=== PATIENT | male | born 1985 | race American Indian/Alaskan Native ===

== ENCOUNTER 2017-05-29 02:27 | Emergency (ER) | payer SELFPAY ==
[2017-05-29 03:35] VITALS: BP 166/117
== END 2017-05-29 02:50 | disposition left against medical advice (07) ==
LOC: ED 02:27
DX: Z53.21 Procedure and treatment not carried out due to patient leaving prior to being seen by health care provider (principal)

== ENCOUNTER 2019-02-26 17:46 | Emergency (ER) | payer MEDICAID ==
[2019-02-26] MEDS ORDERED: ASPIRIN PO ONE (17:54)
--- NOTE | 2019-02-26 17:55 | Event Note ---
ED Screening Note Date of service: 02/26/19 Time: 17:51 ED Screening Note: This is a 34 y.o. M. that presents to the ER with dyspnea, SOB, and chest pain for 3 hours. PMH HTN Currently not on medication. This initial assessment/diagnostic orders/clinical plan/treatment(s) is/are subject to change based on patients health status, clinical progression and re- assessment by fellow clinical providers in the ED. Further treatment and workup at subsequent clinical providers discretion. Patient/guardian urged not to elope from the ED as their condition may be serious if not clinically assessed and managed. Initial orders include: Labs, EKG, & CXR
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
[2019-02-26] MEDS ORDERED: TYLENOL PO ONE (18:38)
[2019-02-26] MEDS ORDERED: PROVENTIL IH ONE (18:38)
[2019-02-26] MEDS ORDERED: FLONASE NS ONE (19:00)
[2019-02-26 19:08] LABS: BUN/Creatinine Ratio 12; Blood Urea Nitrogen 12 mg/dL (9-20); Hemolysis Index 23
[2019-02-26 21:30] VITALS: BP 145/87
== END 2019-02-26 21:28 | disposition home or self-care (01) ==
LOC: ED 17:46
DX: R07.89 Other chest pain (principal); R06.02 Shortness of breath; H57.89 Other specified disorders of eye and adnexa; I10 Essential (primary) hypertension; F17.200 Nicotine dependence, unspecified, uncomplicated; F12.10 Cannabis abuse, uncomplicated
CPT/HCPCS: 36415; 71045; 80048; 80320; 82550; 83735; 93005; 93010; 94640; 94644; G0480

== ENCOUNTER 2019-04-13 07:36 | Emergency (ER) | payer MEDICAID ==
[2019-04-13 07:42] VITALS: BP 139/97
[2019-04-13] MEDS ORDERED: IPRATROPIUM/ALBUTEROL SULFATE 3 ML AMPUL.NEB IH ONE (08:50)
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
--- NOTE | 2019-04-13 09:10 | XRay Report ---
CHEST 2 VIEWS INDICATION: cough. COMPARISON: 02/26/2019 FINDINGS: Support devices: None. Heart: Within normal limits. Lungs/pleura: Streaky right basilar airspace disease with clear left lung. No pneumothorax. Additional findings: None. IMPRESSION: 1. Streaky right basilar airspace disease could be seen with evolving bronchopneumonia. Signer Name: Toni Mojica MD Signed: 04/13/2019 9:05 AM Workstation Name: [id number]
[2019-04-13] MEDS ORDERED: LIDOCAINE-MPF (1%) 10 MG/1 ML VIAL 5 ML INFILTRATI ONE (09:28)
== END 2019-04-13 10:30 | disposition home or self-care (01) ==
LOC: ED 07:36
DX: J18.9 Pneumonia, unspecified organism (principal); I10 Essential (primary) hypertension; F17.200 Nicotine dependence, unspecified, uncomplicated
CPT/HCPCS: 71046; 96372; 99283; J0696

== ENCOUNTER 2019-05-05 07:28 | Emergency (ER) | payer MEDICAID ==
[2019-05-05 08:00] LABS: Basophils # (Auto) 0.1 K/mm3 (0.0-0.1); Basophils % (Auto) 1.8 % (0.0-1.8); Eosinophils # (Auto) 0.1 K/mm3 (0.0-0.4); Eosinophils % (Auto) 1.4 % (0.0-4.3); Hematocrit 45.4 % (35.5-45.6); Hemoglobin 14.8 gm/dl (11.8-15.2); Lymphocytes # (Auto) 2.6 K/mm3 (1.2-5.4); Lymphocytes % (Auto) 46.4 % (13.4-35.0); Mean Corpuscular HGB Conc 33 % (32-34); Mean Corpuscular Volume 88 fl (84-94); Monocytes # (Auto) 0.3 K/mm3 (0.0-0.8); Monocytes % (Auto) 5.7 % (0.0-7.3); Platelet Count 248 K/mm3 (140-440); Red Blood Count 5.15 M/mm3 (3.65-5.03); Red Cell Distribution Width 14.8 % (13.2-15.2)
[2019-05-05 08:01] LABS: Bacteria,Urine 1+ /HPF (Negative); Bilirubin,Urine NEG (Negative); Blood,Urine SM (Negative); Color,Urine Amber (Yellow); Mucus,Urine 1+ /HPF
[2019-05-05 08:17] LABS: Alanine Aminotransferase 108 units/L (7-56); Albumin 3.7 g/dL (3.9-5); BUN/Creatinine Ratio 12; Blood Urea Nitrogen 15 mg/dL (9-20); Calcium 8.9 mg/dL (8.4-10.2); Hemolysis Index 27
--- NOTE | 2019-05-05 10:14 | XRay Report ---
CHEST 2 VIEWS INDICATION / CLINICAL INFORMATION: hemoptysis. COMPARISON: 04/13/2019 FINDINGS: SUPPORT DEVICES: None. HEART / MEDIASTINUM: No significant abnormality. LUNGS / PLEURA: There is mild parenchymal opacity in the right lung base similar to the prior study. The remainder the lungs are clear. No pneumothorax is seen. Pleura is unremarkable ADDITIONAL FINDINGS: No significant additional findings. IMPRESSION: 1. There is persistent mild parenchymal opacity in the right lower chest . No significant change Signer Name: Isak Gonzalez MD Signed: 05/05/2019 10:10 AM Workstation Name: [id number]
[2019-05-05] MEDS ORDERED: SODIUM CHLORIDE 0.9% 1000 ML 1,000 ML IV ONE (11:06)
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
[2019-05-05] MEDS ORDERED: cefTRIAXone/NS 1 GM/50 ML 1 GM/50 ML BAG IV ONE (11:32)
--- NOTE | 2019-05-05 11:36 | XRay Report ---
ABDOMEN 2 VIEW(S) INDICATION / CLINICAL INFORMATION: Abdominal plain, vomiting blood.. COMPARISON: None available. FINDINGS: TUBES / LINES: None. BOWEL GAS PATTERN: No gas-distended loops of intestines. Moderate colonic fecal load. FREE AIR / EXTRALUMINAL GAS: None seen. ADDITIONAL FINDINGS: No radiopaque calculi overlying the kidneys or expected course of the ureters. IMPRESSION: No evidence of acute intra-abdominal process. Nonobstructive bowel gas pattern. Signer Name: Henrik Moy MD Signed: 05/05/2019 11:32 AM Workstation Name: [id number]
[2019-05-05 12:15] LABS: INR 1.18 (0.87-1.13); Partial Thromboplastin Time 29.2 Sec. (24.2-36.6)
--- NOTE | 2019-05-05 14:04 | Ultrasound Report ---
ULTRASOUND ABDOMEN, LIMITED (RIGHT UPPER QUADRANT) INDICATION: abd pain, elevated LFTs. COMPARISON: None available. FINDINGS: Pancreas: Visualized portion shows no significant abnormality. Liver: Normal. Gallbladder: Gallbladder wall is thickened measuring 7 mm. No gallstones are seen. Bile ducts: Normal. Common Bile Duct measures 2 mm. Free fluid: None. Additional Findings: None. IMPRESSION: 1. There is thickening of the gallbladder wall. This is not specific but could indicate cholecystitis . If cholecystitis is a clinical concern, nuclear medicine HIDA scan can be performed to further eval uate. Signer Name: Isak Gonzalez MD Signed: 05/05/2019 2:00 PM Workstation Name: [id number]
[2019-05-05] MEDS ORDERED: hydrALAZINE 20 MG/1 ML INJ IV ONE (15:15)
[2019-05-05] MEDS ORDERED: hydrALAZINE 20 MG/1 ML INJ ONE (15:19)
[2019-05-05 15:25] VITALS: BP 156/144
--- NOTE | 2019-05-05 15:40 | Cat Scan Report ---
CT chest with contrast INDICATION : Shortness of breath, elevated d-dimer. TECHNIQUE: 100 mL of intravenous contrast administered. All CT scans at this location are performed using CT dose reduction for ALARA by means of automated exposure control. COMPARISON: Chest radiograph performed earlier the same day, 02/26/2019. FINDINGS: No filling defect within the pulmonary arteries to suggest the presence of pulmonary embolus. There are scattered areas of groundglass opacities within the inferior right upper lobe as well as li ngular region. The appearance is most suggestive of areas of infectious or inflammatory change. Trace effusions bilaterally, right slightly larger than left. The heart is enlarged. There is no evidence of pericardial effusion. Enlarged hilar and mediastinal l ymph nodes are noted, possibly reactive to the aforementioned pulmonary findings. Osseous structures show no evidence acute fracture or aggressive osseous destructive lesion. Limited evaluation of the upper abdomen is unremarkable. IMPRESSION: No evidence of pulmonary embolism. Scattered areas of glass opacities within the inferior right upper lobe as well as lingular region ar e most suggestive of infectious or inflammatory process. Trace pleural effusions bilaterally, right larger than left. Stable cardiomegaly Signer Name: Henrik Moy MD Signed: 05/05/2019 3:36 PM Workstation Name: [id number]
== END 2019-05-05 16:30 | disposition home or self-care (01) ==
LOC: ED 07:28
DX: J18.9 Pneumonia, unspecified organism (principal); N39.0 Urinary tract infection, site not specified; R94.5 Abnormal results of liver function studies; I10 Essential (primary) hypertension; F17.200 Nicotine dependence, unspecified, uncomplicated
CPT/HCPCS: 36415; 71046; 71275; 74019; 76705; 80053; 81001; 85025; 85379; 85610; 85730; 96365; 96375; 99285; J0360; J0696; J7030

== ENCOUNTER 2019-05-26 22:57 | Inpatient (IN) | payer MEDICAID ==
--- NOTE | 2019-05-27 00:21 | XRay Report ---
CHEST 1 VIEW 11:46 PM INDICATION / CLINICAL INFORMATION: Shortness of breath and chest pain for one month. COMPARISON: 05/15/2019. FINDINGS: SUPPORT DEVICES: None. HEART / MEDIASTINUM: Mild cardiomegaly is stable. Pulmonary vasculature is normal and the aorta is no rmal in caliber. LUNGS / PLEURA: Minimal interstitial edema and a trace amount of right pleural fluid have resolved. N o pneumothorax. ADDITIONAL FINDINGS: No significant additional findings. IMPRESSION: Mild cardiomegaly. No acute abnormality. Signer Name: Graham Berry MD Signed: 05/27/2019 12:17 AM Workstation Name: [id number]
[2019-05-27 00:37] LABS: Basophils % (Auto) 0.3 % (0.0-1.8); Eosinophils # (Auto) 0.1 K/mm3 (0.0-0.4); Eosinophils % (Auto) 1.3 % (0.0-4.3); Hematocrit 41.3 % (35.5-45.6); Hemoglobin 13.5 gm/dl (11.8-15.2); Lymphocytes % (Auto) 32.6 % (13.4-35.0); Mean Corpuscular HGB Conc 33 % (32-34); Mean Corpuscular Volume 86 fl (84-94); Monocytes # (Auto) 0.7 K/mm3 (0.0-0.8); Monocytes % (Auto) 11.4 % (0.0-7.3); Platelet Count 248 K/mm3 (140-440); Red Blood Count 4.82 M/mm3 (3.65-5.03); Red Cell Distribution Width 14.8 % (13.2-15.2)
[2019-05-27 00:48] LABS: INR 1.28 (0.87-1.13)
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
[2019-05-27 00:55] LABS: Partial Thromboplastin Time 32.2 Sec. (24.2-36.6)
[2019-05-27] MEDS ORDERED: FUROSEMIDE 40 MG/4 ML INJ IV ONE (01:01)
[2019-05-27 01:03] LABS: Alanine Aminotransferase 42 units/L (7-56); Albumin 3.6 g/dL (3.9-5); BUN/Creatinine Ratio 12; Blood Urea Nitrogen 16 mg/dL (9-20); Calcium 9.2 mg/dL (8.4-10.2); Hemolysis Index 1
[2019-05-27] MEDS ORDERED: ONDANSETRON 4 MG/2 ML INJ IV PRN (02:35)
[2019-05-27] MEDS ORDERED: ACETAMINOPHEN 325 MG TAB PO PRN (02:35)
--- NOTE | 2019-05-27 03:02 | History and Physical Report ---
History of Present Illness Date of examination: 05/27/19 Date of admission: 05/26/19 Chief complaint: Difficulty in breathing History of present illness: Patient is a 34-year-old male with a past medical history of anxiety, hypertension and heart failure with EF of 10%. Patient was recently discharged 05/19/2019 with cardiology follow-up. Patient states he has been unable to make his appointment, but he has been compliant with medications, wearing his LifeVest, monitoring fluid intake and daily exercise. He presents to ER with complaints of cough, pain with inspiration and shortness of breath x2 days. Patient states worsening symptoms as of last night. He has bee unable to sleep, as there is increasing pain when lying flat. Past History Past Medical History: other (As noted in HPI) Social history: smoking Family history: diabetes, hypertension Medications and Allergies Allergies Allergy/AdvReac Type Severity Reaction Status Date / Time No Known Allergies Allergy Unverified 05/29/17 03:35 Home Medications Medication Instructions Recorded Confirmed Last Taken Type Albuterol INH(or & Nicu Only) 2 puff IH QID PRN #1 inh 05/05/19 05/15/19 Unknown Rx [ProAir HFA Inhaler] Furosemide [Lasix TAB] 40 mg PO QDAY #30 tablet 05/19/19 Unknown Rx carvediloL [Coreg] 3.125 mg PO BID #60 tablet 05/19/19 Unknown Rx lisinopriL [Zestril TAB] 5 mg PO QDAY #30 tablet 05/19/19 Unknown Rx Active Meds: Active Medications Acetaminophen (Tylenol) 650 mg PO Q4H PRN PRN Reason: Pain MILD(1-3)/Fever >100.5/SIMS Ondansetron HCl (Zofran) 4 mg IV Q8H PRN PRN Reason: Nausea And Vomiting Sodium Chloride (Sodium Chloride Flush Syringe 10 Ml) 10 ml IV BID CAMERON Sodium Chloride (Sodium Chloride Flush Syringe 10 Ml) 10 ml IV PRN PRN PRN Reason: LINE FLUSH Review of Systems All systems: negative Cardiovascular: high blood pressure Respiratory: pain on inspiration Exam - Physical Exam Narrative exam: - Physical exam Narrative exam: General appearance: Present: mild distress, well-nourished - EENT Eyes: PERRL, EOM intact ENT: hearing intact, clear oral mucosa Ears: bilateral: normal - Neck Neck: supple, normal ROM - Respiratory Respiratory effort: normal Respiratory: bilateral: Rales, diminished - Cardiovascular Rhythm: regular Heart Sounds: Present: S1 & S2. Absent: gallop, rub Extremities: pulses intact,+2 Edema (pitting bilateral leg edema) Full ROM - Gastrointestinal General gastrointestinal: Present: soft, non-tender, non-distended, normal bowel sounds - Genitourinary Male genitourinary: normal - Integumentary Integumentary: clear, warm, dry - Musculoskeletal Musculoskeletal: strength equal bilaterally - Neurologic Neurologic: moves all extremities - Psychiatric Psychiatric: memory intact, appropriate mood/affect, intact judgment & insight - Constitutional Vitals: Temp Pulse Resp BP Pulse Ox 99.1 F 118 H 20 134/116 96 05/26/19 23:50 05/26/19 23:50 05/27/19 02:31 05/27/19 02:31 05/27/19 02:31 Results - Labs CBC & Chem 7: 05/26/19 23:57 05/26/19 23:57 Labs: Laboratory Last Values WBC 6.3 K/mm3 (4.5-11.0) 05/26/19 23:57 RBC 4.82 M/mm3 (3.65-5.03) 05/26/19 23:57 Hgb 13.5 gm/dl (11.8-15.2) 05/26/19 23:57 Hct 41.3 % (35.5-45.6) 05/26/19 23:57 MCV 86 fl (84-94) 05/26/19 23:57 MCH 28 pg (28-32) 05/26/19 23:57 MCHC 33 % (32-34) 05/26/19 23:57 RDW 14.8 % (13.2-15.2) 05/26/19 23:57 Plt Count 248 K/mm3 (140-440) 05/26/19 23:57 Lymph % (Auto) 32.6 % (13.4-35.0) 05/26/19 23:57 [place] % (Auto) 11.4 % (0.0-7.3) H 05/26/19 23:57 Eos % (Auto) 1.3 % (0.0-4.3) 05/26/19 23:57 Baso % (Auto) 0.3 % (0.0-1.8) 05/26/19 23:57 Lymph # 2.0 K/mm3 (1.2-5.4) 05/26/19 23:57 [place] # 0.7 K/mm3 (0.0-0.8) 05/26/19 23:57 Eos # 0.1 K/mm3 (0.0-0.4) 05/26/19 23:57 Baso # 0.0 K/mm3 (0.0-0.1) 05/26/19 23:57 Seg Neutrophils % 54.4 % (40.0-70.0) 05/26/19 23:57 Seg Neutrophils # 3.4 K/mm3 (1.8-7.7) 05/26/19 23:57 PT 16.2 Sec. (12.2-14.9) H 05/26/19 23:56 INR 1.28 (0.87-1.13) H 05/26/19 23:56 APTT 32.2 Sec. (24.2-36.6) 05/26/19 23:56 Sodium 141 mmol/L (137-145) 05/26/19 23:57 Potassium 4.1 mmol/L (3.6-5.0) 05/26/19 23:57 Chloride 103.3 mmol/L (98-107) 05/26/19 23:57 Carbon Dioxide 24 mmol/L (22-30) 05/26/19 23:57 Anion Gap 18 mmol/L 05/26/19 23:57 BUN 16 mg/dL (9-20) 05/26/19 23:57 Creatinine 1.3 mg/dL (0.8-1.5) 05/26/19 23:57 Estimated GFR > 60 ml/min 05/26/19 23:57 BUN/Creatinine Ratio 12 % 05/26/19 23:57 Glucose 115 mg/dL (75-100) H 05/26/19 23:57 Calcium 9.2 mg/dL (8.4-10.2) 05/26/19 23:57 Total Bilirubin 1.10 mg/dL (0.1-1.2) 05/26/19 23:57 AST 30 units/L (5-40) 05/26/19 23:57 ALT 42 units/L (7-56) 05/26/19 23:57 Alkaline Phosphatase 64 units/L (35-129) 05/26/19 23:57 Troponin T 0.017 ng/mL (0.00-0.029) 05/26/19 23:57 NT-Pro-B Natriuret Pep 2481 pg/mL (0-450) H 05/26/19 23:57 Total Protein 6.5 g/dL (6.3-8.2) 05/26/19 23:57 Albumin 3.6 g/dL (3.9-5) L 05/26/19 23:57 Albumin/Globulin Ratio 1.2 % 05/26/19 23:57 - Imaging and Cardiology EKG: report reviewed (Sinus tach non specific T wave inversion lateral leads) Chest x-ray: report reviewed (Mild cardiomegaly. No acute abnormality.) Assessment and Plan Assessment and plan: Acute on chronic HFrEF (heart failure with reduced ejection fraction) -BNP 2481 -Monitor input and output. -IV diuretics, supportive care -Cardiology consult -Echocardiogram 05/15/2019- EF 10% Substance abuse disorder -THC, opiates positive -hx of alcohol abuse -Cessation counseling Hypertension -Monitor BP -Resume home hypertensive meds once medication reconciliation has been updated -IV hydralazine when necessary DVT prophylaxis -SCDs bilateral -Lovenox subq VTE prophylaxis?: Chemical Plan of care discussed with patient/family: Yes
[2019-05-27] MEDS ORDERED: ZOLPIDEM 5 MG TAB PO ONE (03:17)
[2019-05-27] MEDS: FUROSEMIDE 40 MG/4 ML INJ IV SCH ×2 (06:13→18:45)
--- NOTE | 2019-05-27 13:13 | Progress Note ---
Assessment and Plan Assessment and plan: Acute on chronic HFrEF (heart failure with reduced ejection fraction) -BNP 2481 -Monitor input and output. -IV diuretics, supportive care -Cardiology consult -Echocardiogram 05/15/2019- EF 10% Substance abuse disorder -THC, opiates positive -hx of alcohol abuse -Cessation counseling Hypertension -Monitor BP -Resume home hypertensive meds once medication reconciliation has been updated -IV hydralazine when necessary DVT prophylaxis -SCDs bilateral -Lovenox subq History Interval history: No new issues overnight. Hospitalist Physical - Constitutional Vitals: Temp Pulse Resp BP Pulse Ox 97.6 F 87 18 106/76 95 05/27/19 07:57 05/27/19 07:57 05/27/19 07:57 05/27/19 07:57 05/27/19 07:57 General appearance: Present: no acute distress, well-nourished - EENT Eyes: Present: PERRL, EOM intact ENT: hearing intact, clear oral mucosa, dentition normal - Neck Neck: Present: supple, normal ROM - Respiratory Respiratory effort: normal Respiratory: bilateral: CTA - Cardiovascular Rhythm: regular Heart Sounds: Present: S1 & S2. Absent: gallop, rub - Extremities Extremities: no ischemia, No edema, Full ROM - Abdominal General gastrointestinal: soft, non-tender, non-distended, normal bowel sounds - Integumentary Integumentary: Present: clear, warm, dry - Neurologic Neurologic: CNII-XII intact, moves all extremities Results - Labs CBC & Chem 7: 05/26/19 23:57 05/26/19 23:57 Labs: Laboratory Last Values WBC 6.3 K/mm3 (4.5-11.0) 05/26/19 23:57 RBC 4.82 M/mm3 (3.65-5.03) 05/26/19 23:57 Hgb 13.5 gm/dl (11.8-15.2) 05/26/19 23:57 Hct 41.3 % (35.5-45.6) 05/26/19 23:57 MCV 86 fl (84-94) 05/26/19 23:57 MCH 28 pg (28-32) 05/26/19 23:57 MCHC 33 % (32-34) 05/26/19 23:57 RDW 14.8 % (13.2-15.2) 05/26/19 23:57 Plt Count 248 K/mm3 (140-440) 05/26/19 23:57 Lymph % (Auto) 32.6 % (13.4-35.0) 05/26/19 23:57 [place] % (Auto) 11.4 % (0.0-7.3) H 05/26/19 23:57 Eos % (Auto) 1.3 % (0.0-4.3) 05/26/19 23:57 Baso % (Auto) 0.3 % (0.0-1.8) 05/26/19 23:57 Lymph # 2.0 K/mm3 (1.2-5.4) 05/26/19 23:57 [place] # 0.7 K/mm3 (0.0-0.8) 05/26/19 23:57 Eos # 0.1 K/mm3 (0.0-0.4) 05/26/19 23:57 Baso # 0.0 K/mm3 (0.0-0.1) 05/26/19 23:57 Seg Neutrophils % 54.4 % (40.0-70.0) 05/26/19 23:57 Seg Neutrophils # 3.4 K/mm3 (1.8-7.7) 05/26/19 23:57 PT 16.2 Sec. (12.2-14.9) H 05/26/19 23:56 INR 1.28 (0.87-1.13) H 05/26/19 23:56 APTT 32.2 Sec. (24.2-36.6) 05/26/19 23:56 Sodium 141 mmol/L (137-145) 05/26/19 23:57 Potassium 4.1 mmol/L (3.6-5.0) 05/26/19 23:57 Chloride 103.3 mmol/L (98-107) 05/26/19 23:57 Carbon Dioxide 24 mmol/L (22-30) 05/26/19 23:57 Anion Gap 18 mmol/L 05/26/19 23:57 BUN 16 mg/dL (9-20) 05/26/19 23:57 Creatinine 1.3 mg/dL (0.8-1.5) 05/26/19 23:57 Estimated GFR > 60 ml/min 05/26/19 23:57 BUN/Creatinine Ratio 12 % 05/26/19 23:57 Glucose 115 mg/dL (75-100) H 05/26/19 23:57 Calcium 9.2 mg/dL (8.4-10.2) 05/26/19 23:57 Total Bilirubin 1.10 mg/dL (0.1-1.2) 05/26/19 23:57 AST 30 units/L (5-40) 05/26/19 23:57 ALT 42 units/L (7-56) 05/26/19 23:57 Alkaline Phosphatase 64 units/L (35-129) 05/26/19 23:57 Troponin T 0.022 ng/mL (0.00-0.029) 05/27/19 02:24 NT-Pro-B Natriuret Pep 2481 pg/mL (0-450) H 05/26/19 23:57 Total Protein 6.5 g/dL (6.3-8.2) 05/26/19 23:57 Albumin 3.6 g/dL (3.9-5) L 05/26/19 23:57 Albumin/Globulin Ratio 1.2 % 05/26/19 23:57 Active Medications - Current Medications Current Medications: Generic Name Dose Route Start Last Admin Trade Name [place] PRN Reason Stop Dose Admin Acetaminophen 650 mg 05/27/19 02:35 Tylenol PO Q4H PRN Pain MILD(1-3)/Fever >100.5/SIMS Furosemide 40 mg 05/27/19 06:00 05/27/19 06:13 Lasix IV 40 mg BID@0600,1800 CAMERON Administration Ondansetron HCl 4 mg 05/27/19 02:35 Zofran IV Q8H PRN Nausea And Vomiting Sodium Chloride 10 ml 05/27/19 10:00 05/27/19 10:59 Sodium Chloride Flush Syringe 10 Ml IV 10 ml BID CAMERON Administration Sodium Chloride 10 ml 05/27/19 02:35 05/27/19 06:13 Sodium Chloride Flush Syringe 10 Ml IV 10 ml PRN PRN Administration LINE FLUSH
--- NOTE | 2019-05-27 13:41 | Consultation ---
History of Present Illness Consult date: 05/27/19 Requesting physician: JERI SUNG Consult reason: congestive heart failure History of present illness: 34-year-old male with nonischemic cardiomyopathy was recently discharged came back to the hospital with shortness of breath and cough and sputum production no fever no chills. Patient misunderstood and was not taking the carvedilol and lisinopril as his states his blood pressure is fine. Was compliant with fluid and Lasix. Denies any fever or chills. Has PND and orthopnea. No syncope wearing his LifeVest Past History Past Medical History: heart failure, other (As noted in HPI) Past Surgical History: No surgical history Social history: smoking Family history: diabetes, hypertension Medications and Allergies Allergies Allergy/AdvReac Type Severity Reaction Status Date / Time No Known Allergies Allergy Unverified 05/29/17 03:35 Home Medications Medication Instructions Recorded Confirmed Last Taken Type Albuterol INH(or & Nicu Only) 2 puff IH QID PRN #1 inh 05/05/19 05/27/19 05/26/19 Rx [ProAir HFA Inhaler] Furosemide [Lasix TAB] 40 mg PO QDAY #30 tablet 05/19/19 05/27/19 05/26/19 Rx carvediloL [Coreg] 3.125 mg PO BID #60 tablet 05/19/19 05/27/19 05/26/19 Rx lisinopriL [Zestril TAB] 5 mg PO QDAY #30 tablet 05/19/19 05/27/19 05/26/19 Rx Amoxicillin/Potassium Clav 1 tab PO BID 05/27/19 05/27/19 05/26/19 History [Augmentin 875-125 Tablet] Active Meds: Active Medications Acetaminophen (Tylenol) 650 mg PO Q4H PRN PRN Reason: Pain MILD(1-3)/Fever >100.5/SIMS Carvedilol (Coreg) 3.125 mg PO BID CAMERON Furosemide (Lasix) 40 mg IV BID@0600,1800 CAMERON Last Admin: 05/27/19 06:13 Dose: 40 mg Documented by: Lisinopril (Zestril) 5 mg PO QDAY CAMERON Ondansetron HCl (Zofran) 4 mg IV Q8H PRN PRN Reason: Nausea And Vomiting Sodium Chloride (Sodium Chloride Flush Syringe 10 Ml) 10 ml IV BID CAMERON Last Admin: 05/27/19 10:59 Dose: 10 ml Documented by: Sodium Chloride (Sodium Chloride Flush Syringe 10 Ml) 10 ml IV PRN PRN PRN Reason: LINE FLUSH Last Admin: 05/27/19 06:13 Dose: 10 ml Documented by: Review of Systems All systems: negative (as per hpi) Physical Examination Vital Signs Pulse Resp BP 117 H 16 91/64 05/26/19 23:27 05/26/19 23:27 05/26/19 23:27 General appearance: no acute distress, well-nourished HEENT: Positive: PERRL, Mucus Membranes Moist Neck: Positive: neck supple, trachea midline Cardiac: Positive: Reg Rate and Rhythm, S1/S2. Negative: Audible Murmur Lungs: Positive: clear to auscultation, Normal Breath Sounds Neuro: Positive: Grossly Intact Abdomen: Positive: Soft, Active Bowel Sounds. Negative: Tender, Distended Male genitourinary: Positive: normal Skin: Positive: Clear Incision: Cardiac Cath Site Musculoskeletal: No Pain, Normal Range of Motion Extremities: Present: normal, edema ( mild) Results 05/26/19 23:57 05/26/19 23:57 Cardiac Enzymes 05/26/19 Range/Units 23:57 AST 30 (5-40) units/L Coagulation 05/26/19 Range/Units 23:56 PT 16.2 H (12.2-14.9) Sec. INR 1.28 H (0.87-1.13) APTT 32.2 (24.2-36.6) Sec. CBC 05/26/19 Range/Units 23:57 WBC 6.3 (4.5-11.0) K/mm3 RBC 4.82 (3.65-5.03) M/mm3 Hgb 13.5 (11.8-15.2) gm/dl Hct 41.3 (35.5-45.6) % Plt Count 248 (140-440) K/mm3 Lymph # 2.0 (1.2-5.4) K/mm3 [place] # 0.7 (0.0-0.8) K/mm3 Eos # 0.1 (0.0-0.4) K/mm3 Baso # 0.0 (0.0-0.1) K/mm3 Comprehensive Metabolic Panel 05/26/19 Range/Units 23:57 Sodium 141 (137-145) mmol/L Potassium 4.1 (3.6-5.0) mmol/L Chloride 103.3 (98-107) mmol/L Carbon Dioxide 24 (22-30) mmol/L BUN 16 (9-20) mg/dL Creatinine 1.3 (0.8-1.5) mg/dL Glucose 115 H (75-100) mg/dL Calcium 9.2 (8.4-10.2) mg/dL AST 30 (5-40) units/L ALT 42 (7-56) units/L Alkaline Phosphatase 64 (35-129) units/L Total Protein 6.5 (6.3-8.2) g/dL Albumin 3.6 L (3.9-5) g/dL - Imaging and Cardiology Cardiac cath: report reviewed (normal coronary severe LV dysfunction) EKG interpretations - Telemetry EKG Rhythm: Sinus Rhythm (nsrrhythm nonspecific ST-T is) Assessment and Plan Patient is in congestive heart failure continue IV diuretics reinstate Garcia and an Coreg discussed in detail patient about the need for fluid restriction and the need to wear his zoll LifeVest - Patient Problems (1) Cardiac left ventricular ejection fraction 10-20 percent Current Visit: No Status: Acute (2) Heart failure Current Visit: No Status: Acute Qualifiers: Heart failure type: unspecified (3) NSTEMI (non-ST elevated myocardial infarction) Current Visit: No Status: Acute (4) Nonischemic cardiomyopathy Current Visit: No Status: Chronic (5) Acute respiratory failure Current Visit: Yes Status: Acute Qualifiers: Respiratory failure complication: hypoxia Qualified Code(s): J96.01 - Acute respiratory failure with hypoxia
[2019-05-27] MEDS: carvediloL 3.125 MG TAB PO SCH ×2 (15:17→21:19)
[2019-05-27] MEDS ORDERED: diphenhydrAMINE 25 MG CAP PO PRN (23:23)
[2019-05-27] MEDS: guaiFENesin ER 600 MG TAB PO SCH ×2 (23:31→23:32)
--- NOTE | 2019-05-28 01:25 | XRay Report ---
CHEST 2 VIEWS INDICATION / CLINICAL INFORMATION: Bloody sputum. COMPARISON: 05/26/2019. FINDINGS: SUPPORT DEVICES: None. HEART / MEDIASTINUM: Enlargement of the cardiopericardial silhouette is stable. LUNGS / PLEURA: Mild bibasilar subsegmental atelectasis has increased. No pneumothorax. ADDITIONAL FINDINGS: No significant additional findings. IMPRESSION: Mild bibasilar subsegmental atelectasis. Signer Name: Graham Berry MD Signed: 05/28/2019 1:20 AM Workstation Name: [email or web address]
[2019-05-28 07:48] LABS: BUN/Creatinine Ratio 14; Blood Urea Nitrogen 18 mg/dL (9-20); Calcium 9.3 mg/dL (8.4-10.2); Hemolysis Index 21
[2019-05-28] MEDS: FUROSEMIDE 40 MG/4 ML INJ IV SCH ×2 (07:53→18:12)
[2019-05-28] MEDS ORDERED: traMADol 50 MG TAB PO PRN (10:23)
--- NOTE | 2019-05-28 10:26 | Progress Note ---
Assessment and Plan Patient has nonischemic cardiac myopathy with flulike symptoms continue IV diuretics to tomorrow and transitioned to oral diuretics. Patient has chest pain secondary to persistent coughing his pain management and Mucinex. Patient needs to continue wearing LifeVest. Discussed in detail with the patient and patient's family about cardiac plan - Patient Problems (1) Cardiac left ventricular ejection fraction 10-20 percent Current Visit: No Status: Inactive (2) Heart failure Current Visit: No Status: Acute Qualifiers: Heart failure type: unspecified (3) NSTEMI (non-ST elevated myocardial infarction) Current Visit: No Status: Acute (4) Nonischemic cardiomyopathy Current Visit: No Status: Chronic (5) Acute respiratory failure Current Visit: Yes Status: Acute Qualifiers: Respiratory failure complication: hypoxia Qualified Code(s): J96.01 - Acute respiratory failure with hypoxia Subjective Date of service: 05/28/19 Principal diagnosis: SOB Interval history: Patient having difficulty laying down flat coughing better with Mucinex and having pain in the chest with coughing and deep breathing Objective Vital Signs Temp Pulse Resp BP Pulse Ox 05/28/19 08:10 98.4 F 107 H 16 112/82 98 05/28/19 04:59 98.0 F 85 20 105/76 96 05/28/19 03:57 86 05/27/19 23:59 99.7 F H 115 H 24 106/58 96 05/27/19 21:19 120 H 107/75 05/27/19 20:31 98.8 F 120 H 24 107/75 95 05/27/19 19:33 117 H 05/27/19 17:00 98.2 F 115 H 18 105/61 98 - Physical Examination General: No Apparent Distress HEENT: Positive: PERRL, Mucus Membranes Moist Neck: Positive: neck supple, trachea midline Cardiac: Positive: Reg Rate and Rhythm Lungs: Positive: Decreased Breath Sounds Neuro: Positive: Grossly Intact Abdomen: Positive: Soft, Active Bowel Sounds. Negative: Tender, Distended Skin: Positive: Clear Incision: Cardiac Cath Site Musculoskeletal: No Pain, Normal Range of Motion Extremities: Present: normal, edema ( mild) - Labs and Meds Comprehensive Metabolic Panel 05/28/19 Range/Units 06:31 Sodium 139 (137-145) mmol/L Potassium 4.4 (3.6-5.0) mmol/L Chloride 101.7 (98-107) mmol/L Carbon Dioxide 20 L (22-30) mmol/L BUN 18 (9-20) mg/dL Creatinine 1.3 (0.8-1.5) mg/dL Glucose 103 H (75-100) mg/dL Calcium 9.3 (8.4-10.2) mg/dL - Imaging and Cardiology EKG: report reviewed (Sinus tach non specific T wave inversion lateral leads) Cardiac cath: report reviewed (normal coronary severe LV dysfunction) - Telemetry EKG Rhythm: Sinus Tachycardia
[2019-05-28] MEDS: carvediloL 3.125 MG TAB PO SCH ×2 (10:28→22:59)
[2019-05-28] MEDS: oxyCODONE /ACETAMINOPHEN 5-325MG TAB PO PRN ×3 (10:28→23:53)
[2019-05-28] MEDS: guaiFENesin ER 600 MG TAB PO SCH ×2 (10:28→22:59)
[2019-05-28] MEDS: LISINOPRIL 5 MG TAB PO SCH (10:28)
--- NOTE | 2019-05-28 13:07 | Progress Note ---
Assessment and Plan Assessment and plan: Acute on chronic HFrEF (heart failure with reduced ejection fraction) -BNP 2481 -Monitor input and output. -IV diuretics, supportive care -Cardiology following -Echocardiogram 05/15/2019- EF 10% -Plans to change to p.o. diuretics in a.m. Substance abuse disorder -THC, opiates positive -hx of alcohol abuse -Cessation counseling Hypertension -Monitor BP -Resume home hypertensive meds once medication reconciliation has been updated -IV hydralazine when necessary DVT prophylaxis -SCDs bilateral -Lovenox subq History Interval history: No new issues overnight. Hospitalist Physical - Constitutional Vitals: Temp Pulse Resp BP Pulse Ox 98.4 F 105 H 20 86/57 97 05/28/19 11:48 05/28/19 11:48 05/28/19 11:48 05/28/19 11:48 05/28/19 11:48 General appearance: Present: no acute distress, well-nourished - EENT Eyes: Present: PERRL, EOM intact ENT: hearing intact, clear oral mucosa, dentition normal - Neck Neck: Present: supple, normal ROM - Respiratory Respiratory effort: normal Respiratory: bilateral: CTA - Cardiovascular Rhythm: regular Heart Sounds: Present: S1 & S2. Absent: gallop, rub - Extremities Extremities: no ischemia, No edema, Full ROM - Abdominal General gastrointestinal: soft, non-tender, non-distended, normal bowel sounds - Integumentary Integumentary: Present: clear, warm, dry - Neurologic Neurologic: CNII-XII intact, moves all extremities Results - Labs CBC & Chem 7: 05/26/19 23:57 05/28/19 06:31 Labs: Laboratory Last Values WBC 6.3 K/mm3 (4.5-11.0) 05/26/19 23:57 RBC 4.82 M/mm3 (3.65-5.03) 05/26/19 23:57 Hgb 13.5 gm/dl (11.8-15.2) 05/26/19 23:57 Hct 41.3 % (35.5-45.6) 05/26/19 23:57 MCV 86 fl (84-94) 05/26/19 23:57 MCH 28 pg (28-32) 05/26/19 23:57 MCHC 33 % (32-34) 05/26/19 23:57 RDW 14.8 % (13.2-15.2) 05/26/19 23:57 Plt Count 248 K/mm3 (140-440) 05/26/19 23:57 Lymph % (Auto) 32.6 % (13.4-35.0) 05/26/19 23:57 [place] % (Auto) 11.4 % (0.0-7.3) H 05/26/19 23:57 Eos % (Auto) 1.3 % (0.0-4.3) 05/26/19 23:57 Baso % (Auto) 0.3 % (0.0-1.8) 05/26/19 23:57 Lymph # 2.0 K/mm3 (1.2-5.4) 05/26/19 23:57 [place] # 0.7 K/mm3 (0.0-0.8) 05/26/19 23:57 Eos # 0.1 K/mm3 (0.0-0.4) 05/26/19 23:57 Baso # 0.0 K/mm3 (0.0-0.1) 05/26/19 23:57 Seg Neutrophils % 54.4 % (40.0-70.0) 05/26/19 23:57 Seg Neutrophils # 3.4 K/mm3 (1.8-7.7) 05/26/19 23:57 PT 16.2 Sec. (12.2-14.9) H 05/26/19 23:56 INR 1.28 (0.87-1.13) H 05/26/19 23:56 APTT 32.2 Sec. (24.2-36.6) 05/26/19 23:56 Sodium 139 mmol/L (137-145) 05/28/19 06:31 Potassium 4.4 mmol/L (3.6-5.0) 05/28/19 06:31 Chloride 101.7 mmol/L (98-107) 05/28/19 06:31 Carbon Dioxide 20 mmol/L (22-30) L 05/28/19 06:31 Anion Gap 22 mmol/L 05/28/19 06:31 BUN 18 mg/dL (9-20) 05/28/19 06:31 Creatinine 1.3 mg/dL (0.8-1.5) 05/28/19 06:31 Estimated GFR > 60 ml/min 05/28/19 06:31 BUN/Creatinine Ratio 14 % 05/28/19 06:31 Glucose 103 mg/dL (75-100) H 05/28/19 06:31 Calcium 9.3 mg/dL (8.4-10.2) 05/28/19 06:31 Total Bilirubin 1.10 mg/dL (0.1-1.2) 05/26/19 23:57 AST 30 units/L (5-40) 05/26/19 23:57 ALT 42 units/L (7-56) 05/26/19 23:57 Alkaline Phosphatase 64 units/L (35-129) 05/26/19 23:57 Troponin T 0.022 ng/mL (0.00-0.029) 05/27/19 02:24 NT-Pro-B Natriuret Pep 2481 pg/mL (0-450) H 05/26/19 23:57 Total Protein 6.5 g/dL (6.3-8.2) 05/26/19 23:57 Albumin 3.6 g/dL (3.9-5) L 05/26/19 23:57 Albumin/Globulin Ratio 1.2 % 05/26/19 23:57 Active Medications - Current Medications Current Medications: Generic Name Dose Route Start Last Admin Trade Name Freq PRN Reason Stop Dose Admin Acetaminophen 650 mg 05/27/19 02:35 05/28/19 00:23 Tylenol PO 650 mg Q4H PRN Administration Pain MILD(1-3)/Fever >100.5/SIMS Carvedilol 3.125 mg 05/27/19 14:00 05/28/19 10:28 Coreg PO 3.125 mg BID CAMERON Administration Diphenhydramine HCl 25 mg 05/27/19 23:23 05/27/19 23:32 Benadryl PO 25 mg QHS PRN Administration Sleep Furosemide 40 mg 05/27/19 06:00 05/28/19 07:53 Lasix IV 40 mg BID@0600,1800 CAMERON Administration Guaifenesin 600 mg 05/27/19 11:00 05/28/19 10:28 Mucinex Er PO 600 mg BID CAMERON Administration Lisinopril 5 mg 05/28/19 10:00 05/28/19 10:28 Zestril PO 5 mg QDAY CAMERON Administration Ondansetron HCl 4 mg 05/27/19 02:35 Zofran IV Q8H PRN Nausea And Vomiting Oxycodone/Acetaminophen 1 tab 05/28/19 09:58 05/28/19 10:28 Percocet 5/325 PO 1 tab Q4H PRN Administration Pain, Moderate (4-6) Sodium Chloride 10 ml 05/27/19 10:00 05/27/19 21:20 Sodium Chloride Flush Syringe 10 Ml IV 10 ml BID CAMERON Administration Sodium Chloride 10 ml 05/27/19 02:35 05/28/19 07:53 Sodium Chloride Flush Syringe 10 Ml IV 10 ml PRN PRN Administration LINE FLUSH Tramadol HCl 50 mg 05/28/19 10:23 Ultram PO Q4H PRN Pain, Moderate (4-6) Nutrition/Malnutrition Assess - Dietary Evaluation Nutrition/Malnutrition Findings: Nutrition Notes Start: 05/27/19 12:53 Freq: Status: Active Protocol: Document 05/27/19 12:53 RS (Rec: 05/27/19 12:56 RS [id number]) Co-Sign 05/27/19 12:53 LP Nutrition Notes Need for Assessment generated from: shooter helper,MST Initial or Follow up Brief Note Current Diagnosis Hypertension,Heart Failure Other Pertinent Diagnosis Anxiety, DVT, THC/Opiate abuse disoder Current Diet Cardiac Labs/Tests reviewed Pertinent Medications Lasix Height 5 ft 10 in Weight 97.3 kg [place] Body Weight (kg) 75.45 BMI 30.7 Subjective/Other Information Pt asleep in room both times during visit. Will f/u tomorrow for assessment. Burn Absent Trauma Absent Nutrition Intervention Follow-Up By: 05/29/19 Additional Comments F/U for assessment
[2019-05-29] MEDS: FUROSEMIDE 40 MG/4 ML INJ IV SCH (06:12)
[2019-05-29 09:14] VITALS: BP 99/65
[2019-05-29] MEDS: carvediloL 3.125 MG TAB PO SCH (09:19)
[2019-05-29] MEDS: guaiFENesin ER 600 MG TAB PO SCH (09:19)
[2019-05-29] MEDS: LISINOPRIL 5 MG TAB PO SCH (09:21)
--- NOTE | 2019-05-29 12:57 | Progress Note ---
Assessment and Plan Currently stable cardiac status. Convert IV lasix to PO lasix 40mg daily. Cont low dose coreg and lisinopril. LifeVest in place. Pt may discharge home from cardiology standpoint. Recommend follow up in our office with Dr. Guadarrama within 3-5 days of discharge ([phone]). The patient has been seen in conjunction with Dr. Ervin Green who agrees with the assessment and plan of care. - Patient Problems (1) Acute on chronic HFrEF (heart failure with reduced ejection fraction) Current Visit: Yes Status: Acute (2) Nonischemic cardiomyopathy Current Visit: Yes Status: Chronic (3) H/O alcohol abuse Current Visit: Yes Status: Chronic Subjective Date of service: 05/29/19 Principal diagnosis: SOB Interval history: pt resting in bed, states he is feeling well. LifeVest in place. tele reviewed - in SR HR 100s with 4 beat NSVT overnight, pt asymptomatic. mother at bedside. Objective Last Vital Signs Temp 98.0 F 05/29/19 08:01 Pulse 105 H 05/29/19 10:00 Resp 20 05/29/19 09:34 BP 99/65 05/29/19 09:21 Pulse Ox 96 05/29/19 09:34 - Physical Examination General: No Apparent Distress HEENT: Positive: PERRL, Mucus Membranes Moist Neck: Positive: neck supple, trachea midline Cardiac: Positive: Reg Rate and Rhythm, S1/S2 Lungs: Positive: Decreased Breath Sounds Neuro: Positive: Grossly Intact Abdomen: Positive: Soft, Active Bowel Sounds. Negative: Tender, Distended Skin: Positive: Clear Incision: Cardiac Cath Site Musculoskeletal: No Pain, Normal Range of Motion Extremities: Present: normal, edema ( mild) - Imaging and Cardiology EKG: report reviewed (Sinus tach non specific T wave inversion lateral leads) Cardiac cath: report reviewed (normal coronary severe LV dysfunction) - Telemetry EKG Rhythm: Sinus Rhythm
--- NOTE | 2019-05-29 14:08 | Discharge Summary ---
Providers - Providers Date of Admission: 05/27/19 15:37 Date of discharge: 05/29/19 Attending physician: JERI SUNG 05/27/19 03:53 Consult to Physician [CONS] Routine Comment: Consulting Provider: ELFEGO MCCLELLAND Physician Instructions: Reason For Exam: chf Primary care physician: C[facility] Hospitalization Reason for admission: chf exac Condition: Fair Hospital course: 34-year-old male with nonischemic cardiomyopathy was recently discharged came back to the hospital with shortness of breath and cough and sputum production no fever no chills. Patient misunderstood and was not taking the carvedilol and lisinopril as his states his blood pressure is fine. Was compliant with fluid and Lasix. The patient was admitted with acute systolic heart failure exacerbation. Cardiology saw the patient in consultation. Patient was restarted on medications and has significant improvement. Patient is felt to have received maximal hospital benefit and will be discharged home. Dedicated discharge time 32 minutes. Disposition: - TO HOME OR SELFCARE Time spent for discharge: 32 - Discharge Diagnoses (1) Acute on chronic HFrEF (heart failure with reduced ejection fraction) Status: Acute (2) Acute respiratory failure Status: Acute Qualifiers: Respiratory failure complication: hypoxia Qualified Code(s): J96.01 - Acute respiratory failure with hypoxia (3) Nonischemic cardiomyopathy Status: Chronic Core Measure Documentation - Palliative Care Palliative Care/ Comfort Measures: Not Applicable - Core Measures Any of the following diagnoses?: none Exam - Constitutional Vitals: Temp Pulse Resp BP Pulse Ox 98.0 F 105 H 20 99/65 96 05/29/19 08:01 05/29/19 10:00 05/29/19 09:34 05/29/19 09:21 05/29/19 09:34 General appearance: Present: no acute distress, well-nourished - EENT Eyes: Present: PERRL ENT: hearing intact, clear oral mucosa - Neck Neck: Present: supple, normal ROM - Respiratory Respiratory effort: normal Respiratory: bilateral: CTA - Cardiovascular Heart Sounds: Present: S1 & S2. Absent: rub, click - Extremities Extremities: pulses symmetrical, No edema Peripheral Pulses: within normal limits - Abdominal General gastrointestinal: Present: soft, non-tender, non-distended, normal bowel sounds Male genitourinary: Present: normal - Integumentary Integumentary: Present: clear, warm, dry - Musculoskeletal Musculoskeletal: gait normal, strength equal bilaterally - Psychiatric Psychiatric: appropriate mood/affect, intact judgment & insight - Neurologic Neurologic: CNII-XII intact, moves all extremities Plan Activity: advance as tolerated Weight Bearing Status: Full Weight Bearing Diet: low fat, low cholesterol, low salt Follow up with: PRIMARY CARE, [Primary Care Provider] - 7 Days ALEXANDRO UMANA MD [Staff Physician] - 7 Days Prescriptions: carvediloL [Coreg] 3.125 mg PO BID #60 tablet Furosemide [Lasix TAB] 40 mg PO QDAY #30 tablet oxyCODONE /ACETAMINOPHEN [Percocet 5/325 mg] 1 tab PO Q4H PRN #10 tablet PRN Reason: Pain, Moderate (4-6) lisinopriL [Zestril TAB] 5 mg PO QDAY #30 tablet
[2019-05-29] MEDS: oxyCODONE /ACETAMINOPHEN 5-325MG TAB PO PRN (16:30)
[2019-05-30] MEDS ORDERED: FUROSEMIDE 40 MG TAB PO SCH (10:00)
== END 2019-05-29 17:00 | disposition home or self-care (01) | DRG 280 ==
LOC: ED 22:57 → 4A 05-27 04:46 → OBSVTOIN 05-27 15:37
PROVIDERS: ADMIT Internal Medicine Geriatric Medicine; ATTEND Hospitalist
DX: I11.0 Hypertensive heart disease with heart failure (principal); I21.4 Non-ST elevation (NSTEMI) myocardial infarction; J96.01 Acute respiratory failure with hypoxia; I50.23 Acute on chronic systolic (congestive) heart failure; I42.0 Dilated cardiomyopathy; I25.2 Old myocardial infarction; F41.9 Anxiety disorder, unspecified; F12.10 Cannabis abuse, uncomplicated; I42.9 Cardiomyopathy, unspecified; I47.2 Ventricular tachycardia; Z87.891 Personal history of nicotine dependence
CPT/HCPCS: 36415; 71045; 71046; 80048; 80053; 83880; 84484; 85025; 85610; 85730; 87070; 87205; 93005; 93010; 96374; G0378; J1940

== ENCOUNTER 2019-07-04 19:33 | Inpatient (IN) | payer MEDICAID, OTHER ==
[2019-07-04] MEDS ORDERED: FUROSEMIDE 40 MG/4 ML INJ IV ONE (20:11)
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
[2019-07-04 20:16] LABS: Basophils % (Auto) 0.3 % (0.0-1.8); Eosinophils # (Auto) 0.1 K/mm3 (0.0-0.4); Eosinophils % (Auto) 1.4 % (0.0-4.3); Hematocrit 42.1 % (35.5-45.6); Lymphocytes # (Auto) 1.7 K/mm3 (1.2-5.4); Lymphocytes % (Auto) 42.5 % (13.4-35.0); Mean Corpuscular HGB Conc 33 % (32-34); Mean Corpuscular Volume 80 fl (84-94); Monocytes # (Auto) 0.2 K/mm3 (0.0-0.8); Monocytes % (Auto) 6.1 % (0.0-7.3); Platelet Count 228 K/mm3 (140-440); Red Blood Count 5.29 M/mm3 (3.65-5.03)
[2019-07-04 20:28] LABS: INR 1.31 (0.87-1.13); Partial Thromboplastin Time 29.9 Sec. (24.2-36.6)
[2019-07-04 20:31] LABS: BUN/Creatinine Ratio 12; Blood Urea Nitrogen 17 mg/dL (9-20); Calcium 9.7 mg/dL (8.4-10.2); Hemolysis Index 14
--- NOTE | 2019-07-04 21:14 | XRay Report ---
CHEST 1 VIEW INDICATION / CLINICAL INFORMATION: Dyspnea. COMPARISON: 05/28/2019 FINDINGS: SUPPORT DEVICES: None. HEART / MEDIASTINUM: Stable. Mild enlargement of the cardiac mediastinal silhouette. LUNGS / PLEURA: No significant pulmonary or pleural abnormality. No pneumothorax. ADDITIONAL FINDINGS: No significant additional findings. IMPRESSION: 1. Cardiomegaly without acute lung disease. Signer Name: Babar Murray MD Signed: 07/04/2019 9:09 PM Workstation Name: [email or web address]
[2019-07-04] MEDS ORDERED: ONDANSETRON 4 MG/2 ML INJ IV PRN (22:36)
[2019-07-04] MEDS ORDERED: MAGNESIUM HYDROXIDE (MOM) ORAL LIQD UDC PO PRN (22:36)
[2019-07-04] MEDS ORDERED: ACETAMINOPHEN 325 MG TAB PO PRN (22:36)
[2019-07-04] MEDS ORDERED: MORPHINE 2 MG/1 ML INJ IV PRN (22:36)
--- NOTE | 2019-07-04 22:47 | History and Physical Report ---
History of Present Illness Date of examination: 07/04/19 Date of admission: 07/04/2019 Chief complaint: SHORTNESS OF BREATH History of present illness: 34-year-old -[place] male with known history of congestive heart failure with ejection fraction of about 10% presenting to the emergency room today complaining of shortness of breath progressive swelling of his lower extremities. Patient denies any chest pain, no nausea vomiting, no fever or chills. Patient indicates that his swelling has gotten worse since being started on digoxin recently. He also indicates that he has not been able to lie down flat. Denies any headache or dizziness and indicates he has been compliant with his medications. Patient has been wearing a LifeVest since April 2019. Evaluation in the emergency room shows sinus tachycardia on the EKG without any obvious ischemic changes, elevated BNP and cardiomegaly on the chest x-ray. Past History Past Medical History: CAD, heart failure, hypertension, other (H/O Pneumonia, Back pain) Social history: smoking (Former smoker) Family history: no significant family history Medications and Allergies Allergies Allergy/AdvReac Type Severity Reaction Status Date / Time No Known Allergies Allergy Verified 07/04/19 19:35 Home Medications Medication Instructions Recorded Confirmed Last Taken Type Albuterol INH(or & Nicu Only) 2 puff IH QID PRN #1 inh 05/05/19 07/04/19 05/26/19 Rx [ProAir HFA Inhaler] Furosemide [Lasix TAB] 40 mg PO QDAY #30 tablet 05/29/19 07/04/19 Unknown Rx carvediloL [Coreg] 3.125 mg PO BID #60 tablet 05/29/19 07/04/19 Unknown Rx lisinopriL [Zestril TAB] 5 mg PO QDAY #30 tablet 05/29/19 07/04/19 Unknown Rx Digoxin 125 mcg PO QDAY 07/04/19 07/04/19 Unknown History Active Meds: Active Medications Acetaminophen (Tylenol) 650 mg PO Q4H PRN PRN Reason: Pain MILD(1-3)/Fever >100.5/SIMS Furosemide (Lasix) 40 mg IV BID@0600,1800 [place] Magnesium Hydroxide (Milk Of Magnesia) 30 ml PO Q4H PRN PRN Reason: Constipation Morphine Sulfate (Morphine) 2 mg IV Q4H PRN PRN Reason: Pain, Moderate (4-6) Ondansetron HCl (Zofran) 4 mg IV Q8H PRN PRN Reason: Nausea And Vomiting Sodium Chloride (Sodium Chloride Flush Syringe 10 Ml) 10 ml IV BID CAM[place] Sodium Chloride (Sodium Chloride Flush Syringe 10 Ml) 10 ml IV PRN PRN PRN Reason: LINE FLUSH Review of Systems Constitutional: weight gain, no fever, no chills Cardiovascular: orthopnea, shortness of breath Respiratory: cough Gastrointestinal: no nausea, no vomiting, no diarrhea Genitourinary Male: no dysuria, no hematuria Musculoskeletal: low back pain Integumentary: no rash, no pruritis Neurological: no syncope, no headaches, no change in mentation Exam - Constitutional Vitals: Temp Pulse Resp BP Pulse Ox 97.3 F L 104 H 18 130/97 96 07/04/19 20:13 07/04/19 22:15 07/04/19 22:15 07/04/19 22:15 07/04/19 22:15 General appearance: Present: no acute distress, well-nourished - EENT Eyes: Present: PERRL, EOM intact ENT: hearing intact, clear oral mucosa, dentition normal - Neck Neck: Present: supple, normal ROM - Respiratory Respiratory effort: normal Respiratory: bilateral: CTA - Cardiovascular Rhythm: regular Heart Sounds: Present: S1 & S2 - Extremities Extremities: no ischemia, pulses intact, Full ROM Extremity abnormal: edema (2+) Peripheral Pulses: within normal limits - Abdominal General gastrointestinal: Present: soft, non-tender, non-distended - Integumentary Integumentary: Present: clear, warm, dry - Musculoskeletal Musculoskeletal: strength equal bilaterally - Psychiatric Psychiatric: appropriate mood/affect, intact judgment & insight, cooperative - Neurologic Neurologic: CNII-XII intact, moves all extremities Results - Labs CBC & Chem 7: 07/04/19 20:03 07/04/19 20:03 Labs: Abnormal lab results 07/04/19 07/04/19 07/04/19 Range/Units 20:03 20:03 20:03 WBC 4.0 L (4.5-11.0) K/mm3 RBC 5.29 H (3.65-5.03) M/mm3 MCV 80 L (84-94) fl MCH 26 L (28-32) pg RDW 16.0 H (13.2-15.2) % Lymph % (Auto) 42.5 H (13.4-35.0) % PT 16.5 H (12.2-14.9) Sec. INR 1.31 H (0.87-1.13) Glucose 110 H (75-100) mg/dL NT-Pro-B Natriuret Pep (0-450) pg/mL Digoxin (0.9-2.0) ng/mL 07/04/19 07/04/19 Range/Units 20:03 20:03 WBC (4.5-11.0) K/mm3 RBC (3.65-5.03) M/mm3 MCV (84-94) fl MCH (28-32) pg RDW (13.2-15.2) % Lymph % (Auto) (13.4-35.0) % PT (12.2-14.9) Sec. INR (0.87-1.13) Glucose (75-100) mg/dL NT-Pro-B Natriuret Pep 4839 H (0-450) pg/mL Digoxin 0.8 L (0.9-2.0) ng/mL Assessment and Plan - Patient Problems (1) Acute on chronic HFrEF (heart failure with reduced ejection fraction) Current Visit: Yes Status: Acute Plan to address problem: Patient admitted and placed on a diuretic. Will monitor daily weights and monitor inputs and outputs. Patient counseled on diet. Will place consult to cardiology for follow-up and further recommendation. (2) Hypertension Current Visit: No Status: Chronic Qualifiers: Hypertension type: essential hypertension Qualified Code(s): I10 - Essential (primary) hypertension Plan to address problem: Blood pressure stable. Continue on routine home medications once reconciled and monitor blood pressure closely. (3) DVT prophylaxis Current Visit: No Status: Acute Plan to address problem: Patient placed on subcutaneous heparin. (4) Full code status Current Visit: No Status: Acute
[2019-07-05] MEDS ORDERED: ALBUTEROL 8.5 GM INHALATION IH PRN (05:50)
[2019-07-05] MEDS ORDERED: ALBUTEROL 2.5 MG/3 ML NEBU IH PRN (05:55)
[2019-07-05] MEDS: FUROSEMIDE 40 MG/4 ML INJ IV SCH ×2 (06:11→17:58)
[2019-07-05] MEDS: HEPARIN 5,000 UNIT/1 ML VIAL SUB-Q SCH ×3 (06:11→22:41)
[2019-07-05 06:18] LABS: Hematocrit 37.7 % (35.5-45.6); Hemoglobin 12.3 gm/dl (11.8-15.2); Mean Corpuscular HGB Conc 33 % (32-34); Mean Corpuscular Volume 80 fl (84-94); Platelet Count 208 K/mm3 (140-440); Red Blood Count 4.74 M/mm3 (3.65-5.03); Red Cell Distribution Width 15.8 % (13.2-15.2)
[2019-07-05 06:25] LABS: INR 1.35 (0.87-1.13)
[2019-07-05 06:26] LABS: Partial Thromboplastin Time 28.9 Sec. (24.2-36.6)
[2019-07-05 06:50] LABS: BUN/Creatinine Ratio 13; Blood Urea Nitrogen 17 mg/dL (9-20); Calcium 9.1 mg/dL (8.4-10.2); Hemolysis Index 3
[2019-07-05 07:11] LABS: Basophils % (Manual) 0 % (0.0-1.8); Hypochromasia 1+; Total Cells Counted 100
[2019-07-05 07:12] LABS: Burr Cells Rare; Target Cells Rare
[2019-07-05 07:13] LABS: Platelet Estimate Consistent w Auto; Schistocytes Rare
[2019-07-05] MEDS: LISINOPRIL 5 MG TAB PO SCH (10:14)
[2019-07-05] MEDS: carvediloL 3.125 MG TAB PO SCH ×2 (10:14→22:41)
--- NOTE | 2019-07-05 10:56 | Progress Note ---
Assessment and Plan - Patient Problems (1) Acute on chronic HFrEF (heart failure with reduced ejection fraction) Current Visit: Yes Status: Acute Plan to address problem: Patient young male with severe systolic heart failure with ejection fraction of 10%. Increased shortness of breath orthopnea dyspnea on exertion consistent with CHF exacerbation. Patient had increased swelling dyspnea orthopnea dyspnea with minimal exertion. Patient has had LifeVest on since April digoxin added. (2) Acute respiratory failure Current Visit: No Status: Acute Qualifiers: Respiratory failure complication: hypoxia Qualified Code(s): J96.01 - Acute respiratory failure with hypoxia Plan to address problem: Patient acute on chronic respiratory failure secondary to decompensation of COPD. Continue diuresis nebulizers oxygen. (3) DVT prophylaxis Current Visit: No Status: Acute (4) H/O alcohol abuse Current Visit: No Status: Resolved (5) Hypertension Current Visit: Yes Status: Chronic Qualifiers: Hypertension type: essential hypertension Qualified Code(s): I10 - Essential (primary) hypertension Plan to address problem: Optimal treatment with Coreg lisinopril digoxin. History Interval history: Patient 34-year-old with a history of congestive heart failure ejection fraction 10%. Comorbid diagnoses of coronary artery disease hypertension presents with increased lower extremity edema shortness of breath orthopnea and PND. No chest pain. Main concerns are swelling. Patient has had LifeVest since April 2019. States he has been compliant with medications. At this time patient feels somewhat improved with recent diuresis over the past 24 hours. Hospitalist Physical - Constitutional Vitals: Temp Pulse Resp BP Pulse Ox 98.6 F 113 H 18 137/69 98 07/05/19 08:17 07/05/19 10:14 07/05/19 08:17 07/05/19 10:14 07/05/19 08:17 General appearance: Present: no acute distress, well-nourished - EENT Eyes: Present: PERRL, EOM intact ENT: hearing intact, clear oral mucosa, dentition normal - Neck Neck: Present: supple, normal ROM - Respiratory Respiratory effort: normal Respiratory: bilateral: diminished - Cardiovascular Rhythm: irregularly irregular Heart Sounds: Present: S1 & S2 - Extremities Extremities: no ischemia, pulses intact, pulses symmetrical, normal temperature, normal color, Full ROM Extremity abnormal: edema Peripheral Pulses: within normal limits - Abdominal General gastrointestinal: soft, non-tender, non-distended, normal bowel sounds - Integumentary Integumentary: Present: clear, warm, dry - Psychiatric Psychiatric: appropriate mood/affect, intact judgment & insight - Neurologic Neurologic: CNII-XII intact, focal deficits DANIEL score - Daniel Score Age > 65: (0) No Aspirin use within the Past 7 Days: (0) No 3 or more CAD Risk Factors: (0) No 2 or more Angina events in past 24 hrs: (1) Yes Known CAD with more than 50% Stenosis: (0) No Elevated Cardiac Markers: (1) Yes ST Deviation Greater than 0.5mm: (0) No DANIEL Score: 2 Results - Labs CBC & Chem 7: 07/05/19 05:46 07/05/19 05:46 Labs: Laboratory Last Values WBC 4.1 K/mm3 (4.5-11.0) L 07/05/19 05:46 RBC 4.74 M/mm3 (3.65-5.03) 07/05/19 05:46 Hgb 12.3 gm/dl (11.8-15.2) 07/05/19 05:46 Hct 37.7 % (35.5-45.6) 07/05/19 05:46 MCV 80 fl (84-94) L 07/05/19 05:46 MCH 26 pg (28-32) L 07/05/19 05:46 MCHC 33 % (32-34) 07/05/19 05:46 RDW 15.8 % (13.2-15.2) H 07/05/19 05:46 Plt Count 208 K/mm3 (140-440) 07/05/19 05:46 Lymph % (Auto) 42.5 % (13.4-35.0) H 07/04/19 20:03 [place] % (Auto) 6.1 % (0.0-7.3) 07/04/19 20:03 Eos % (Auto) 1.4 % (0.0-4.3) 07/04/19 20:03 Baso % (Auto) 0.3 % (0.0-1.8) 07/04/19 20:03 Lymph # 1.7 K/mm3 (1.2-5.4) 07/04/19 20:03 [place] # 0.2 K/mm3 (0.0-0.8) 07/04/19 20:03 Eos # 0.1 K/mm3 (0.0-0.4) 07/04/19 20:03 Baso # 0.0 K/mm3 (0.0-0.1) 07/04/19 20:03 Add Manual Diff Complete 07/05/19 05:46 Total Counted 100 07/05/19 05:46 Seg Neutrophils % Wildlife Policy Professional 07/05/19 05:46 Seg Neuts % (Manual) 35.0 % (40.0-70.0) L 07/05/19 05:46 Band Neutrophils % 0 % 07/05/19 05:46 Lymphocytes % (Manual) 55.0 % (13.4-35.0) H 07/05/19 05:46 Reactive Lymphs % (Man) 0 % 07/05/19 05:46 Monocytes % (Manual) 8.0 % (0.0-7.3) H 07/05/19 05:46 Eosinophils % (Manual) 2.0 % (0.0-4.3) 07/05/19 05:46 Basophils % (Manual) 0 % (0.0-1.8) 07/05/19 05:46 Metamyelocytes % 0 % 07/05/19 05:46 Myelocytes % 0 % 07/05/19 05:46 Promyelocytes % 0 % 07/05/19 05:46 Blast Cells % 0 % 07/05/19 05:46 Nucleated RBC % Not Reportable 07/05/19 05:46 Seg Neutrophils # 2.0 K/mm3 (1.8-7.7) 07/04/19 20:03 Seg Neutrophils # Man 1.4 K/mm3 (1.8-7.7) L 07/05/19 05:46 Band Neutrophils # 0.0 K/mm3 07/05/19 05:46 Lymphocytes # (Manual) 2.3 K/mm3 (1.2-5.4) 07/05/19 05:46 Abs React Lymphs (Man) 0.0 K/mm3 07/05/19 05:46 Monocytes # (Manual) 0.3 K/mm3 (0.0-0.8) 07/05/19 05:46 Eosinophils # (Manual) 0.1 K/mm3 (0.0-0.4) 07/05/19 05:46 Basophils # (Manual) 0.0 K/mm3 (0.0-0.1) 07/05/19 05:46 Metamyelocytes # 0.0 K/mm3 07/05/19 05:46 Myelocytes # 0.0 K/mm3 07/05/19 05:46 Promyelocytes # 0.0 K/mm3 07/05/19 05:46 Blast Cells # 0.0 K/mm3 07/05/19 05:46 WBC Morphology Not Reportable 07/05/19 05:46 Hypersegmented Neuts Not Reportable 07/05/19 05:46 Hyposegmented Neuts Not Reportable 07/05/19 05:46 Hypogranular Neuts Not Reportable 07/05/19 05:46 Smudge Cells Not Reportable 07/05/19 05:46 Toxic Granulation Not Reportable 07/05/19 05:46 Toxic Vacuolation Not Reportable 07/05/19 05:46 Dohle Bodies Not Reportable 07/05/19 05:46 Pelger-Huet Anomaly Not Reportable 07/05/19 05:46 Constantino Rods Not Reportable 07/05/19 05:46 Platelet Estimate Consistent w auto 07/05/19 05:46 Clumped Platelets Not Reportable 07/05/19 05:46 Plt Clumps, EDTA Not Reportable 07/05/19 05:46 Large Platelets Not Reportable 07/05/19 05:46 Giant Platelets Not Reportable 07/05/19 05:46 Platelet Satelliting Not Reportable 07/05/19 05:46 Plt Morphology Comment Not Reportable 07/05/19 05:46 RBC Morphology Not Reportable 07/05/19 05:46 Dimorphic RBCs Not Reportable 07/05/19 05:46 Polychromasia Not Reportable 07/05/19 05:46 Hypochromasia 1+ 07/05/19 05:46 Poikilocytosis Not Reportable 07/05/19 05:46 Anisocytosis Not Reportable 07/05/19 05:46 Microcytosis Not Reportable 07/05/19 05:46 Macrocytosis Not Reportable 07/05/19 05:46 Spherocytes Not Reportable 07/05/19 05:46 Pappenheimer Bodies Not Reportable 07/05/19 05:46 Sickle Cells Not Reportable 07/05/19 05:46 Target Cells Rare 07/05/19 05:46 Tear Drop Cells Not Reportable 07/05/19 05:46 Ovalocytes Not Reportable 07/05/19 05:46 Helmet Cells Not Reportable 07/05/19 05:46 [place] Bodies Not Reportable 07/05/19 05:46 [place] Rings Not Reportable 07/05/19 05:46 Barnum Cells Rare 07/05/19 05:46 Bite Cells Not Reportable 07/05/19 05:46 Crenated Cell Not Reportable 07/05/19 05:46 Elliptocytes Not Reportable 07/05/19 05:46 Acanthocytes (Spur) Not Reportable 07/05/19 05:46 Rouleaux Not Reportable 07/05/19 05:46 Hemoglobin C Crystals Not Reportable 07/05/19 05:46 Schistocytes Rare 07/05/19 05:46 Malaria parasites Not Reportable 07/05/19 05:46 Meir Bodies Not Reportable 07/05/19 05:46 Hem Pathologist Commnt No 07/05/19 05:46 PT 16.9 Sec. (12.2-14.9) H 07/05/19 05:46 INR 1.35 (0.87-1.13) H 07/05/19 05:46 APTT 28.9 Sec. (24.2-36.6) 07/05/19 05:46 Sodium 140 mmol/L (137-145) 07/05/19 05:46 Potassium 3.9 mmol/L (3.6-5.0) 07/05/19 05:46 Chloride 102.8 mmol/L (98-107) 07/05/19 05:46 Carbon Dioxide 21 mmol/L (22-30) L 07/05/19 05:46 Anion Gap 20 mmol/L 07/05/19 05:46 BUN 17 mg/dL (9-20) 07/05/19 05:46 Creatinine 1.3 mg/dL (0.8-1.5) 07/05/19 05:46 Estimated GFR > 60 ml/min 07/05/19 05:46 BUN/Creatinine Ratio 13 % 07/05/19 05:46 Glucose 106 mg/dL (75-100) H 07/05/19 05:46 POC Glucose 83 (70-105) 07/05/19 08:34 Calcium 9.1 mg/dL (8.4-10.2) 07/05/19 05:46 Magnesium 2.00 mg/dL (1.7-2.3) 07/04/19 20:03 Troponin T < 0.010 ng/mL (0.00-0.029) 07/04/19 23:18 NT-Pro-B Natriuret Pep 4839 pg/mL (0-450) H 07/04/19 20:03 Digoxin 0.8 ng/mL (0.9-2.0) L 07/04/19 20:03 Active Medications - Current Medications Current Medications: Generic Name Dose Route Start Last Admin Trade Name Freq PRN Reason Stop Dose Admin Acetaminophen 650 mg 07/04/19 22:36 Tylenol PO Q4H PRN Pain MILD(1-3)/Fever >100.5/SIMS Albuterol 2.5 mg 07/05/19 05:55 Proventil IH Q4HRT PRN Shortness Of Breath Carvedilol 3.125 mg 07/05/19 10:00 07/05/19 10:14 Coreg PO 3.125 mg BID CAMERON Administration Digoxin 0.125 mg 07/05/19 17:00 Lanoxin PO QDAY@1700 CAMERON Furosemide 40 mg 07/05/19 06:00 07/05/19 06:11 Lasix IV 40 mg BID@0600,1800 CAMERON Administration Heparin Sodium (Porcine) 5,000 unit 07/05/19 06:00 07/05/19 06:11 Heparin SUB-Q 5,000 unit Q8HR CAMERON Administration Lisinopril 5 mg 07/05/19 10:00 07/05/19 10:14 Zestril PO 5 mg QDAY CAMERON Administration Magnesium Hydroxide 30 ml 07/04/19 22:36 Milk Of Magnesia PO Q4H PRN Constipation Morphine Sulfate 2 mg 07/04/19 22:36 Morphine IV Q4H PRN Pain, Moderate (4-6) Ondansetron HCl 4 mg 07/04/19 22:36 Zofran IV Q8H PRN Nausea And Vomiting Sodium Chloride 10 ml 07/05/19 10:00 07/05/19 10:14 Sodium Chloride Flush Syringe 10 Ml IV 10 ml BID CAMERON Administration Sodium Chloride 10 ml 07/04/19 22:36 Sodium Chloride Flush Syringe 10 Ml IV PRN PRN LINE FLUSH
--- NOTE | 2019-07-05 11:04 | Consultation ---
History of Present Illness Consult date: 07/05/19 Requesting physician: IRWIN VILLAFUERTE Consult reason: congestive heart failure History of present illness: Pt is a 34 y.o. AA male with a past medical hx of NICMP (dx Apr 2019), chronic HFrEF (EF 10%), HTN, and previous alcohol abuse. He is followed in our office by Dr. Guadarrama. Pt was recently discharged from [facility] following acute HF exacerbation and re-presented yesterday with c/o BLE edema and SOB x 1 day. He reports that he has been taking all of his medications as prescribed and has been wearing his LifeVest. He reports N/V since beginning Digoxin (current digoxin level 0.8). He also reports hemoptysis since completing his recent abx course for PNA. Upon exam, he reports continued SOB, FERGUSON, orthopnea, and BLE edema. Pt denies CP, palpitations, and fever/chills. Trop negative x 1. ECG shows sinus tach. BNP elevated. CXR shows mild cardiomegaly with no acute lung disease noted. LHC done 05/15/2019 - dilated LV w/severe diffuse hypokinesis; EF 10%; normal coronary anatomy. Echo done 05/15/2019 - LA mildly dilated; RA mildly dilated; EF 10-15%; LV mildly dilated; trace MR; mild TR; RV mod dilated; RV sys function mod reduced. Past History Past Medical History: heart failure, hypertension, other (NICMP, hx of PNA) Social history: smoking (former smoker), alcohol abuse (hx of etoh abuse). denies: prescription drug abuse Family history: no significant family history Medications and Allergies Allergies Allergy/AdvReac Type Severity Reaction Status Date / Time No Known Allergies Allergy Verified 07/04/19 19:35 Home Medications Medication Instructions Recorded Confirmed Last Taken Type Albuterol INH(or & Nicu Only) 2 puff IH QID PRN #1 inh 05/05/19 07/04/19 05/26/19 Rx [ProAir HFA Inhaler] Furosemide [Lasix TAB] 40 mg PO QDAY #30 tablet 05/29/19 07/04/19 Unknown Rx carvediloL [Coreg] 3.125 mg PO BID #60 tablet 05/29/19 07/04/19 Unknown Rx lisinopriL [Zestril TAB] 5 mg PO QDAY #30 tablet 05/29/19 07/04/19 Unknown Rx Digoxin 125 mcg PO QDAY 07/04/19 07/04/19 Unknown History Active Meds: Active Medications Acetaminophen (Tylenol) 650 mg PO Q4H PRN PRN Reason: Pain MILD(1-3)/Fever >100.5/SIMS Albuterol (Proventil) 2.5 mg IH Q4HRT PRN PRN Reason: Shortness Of Breath Carvedilol (Coreg) 3.125 mg PO BID [facility] Last Admin: 07/05/19 10:14 Dose: 3.125 mg Documented by: Digoxin (Lanoxin) 0.125 mg PO QDAY@1700 [facility] Furosemide (Lasix) 40 mg IV BID@0600,1800 [facility] Last Admin: 07/05/19 06:11 Dose: 40 mg Documented by: Heparin Sodium (Porcine) (Heparin) 5,000 unit SUB-Q Q8HR [facility] Last Admin: 07/05/19 06:11 Dose: 5,000 unit Documented by: Lisinopril (Zestril) 5 mg PO QDAY [facility] Last Admin: 07/05/19 10:14 Dose: 5 mg Documented by: Magnesium Hydroxide (Milk Of Magnesia) 30 ml PO Q4H PRN PRN Reason: Constipation Morphine Sulfate (Morphine) 2 mg IV Q4H PRN PRN Reason: Pain, Moderate (4-6) Ondansetron HCl (Zofran) 4 mg IV Q8H PRN PRN Reason: Nausea And Vomiting Sodium Chloride (Sodium Chloride Flush Syringe 10 Ml) 10 ml IV BID [facility] Last Admin: 07/05/19 10:14 Dose: 10 ml Documented by: Sodium Chloride (Sodium Chloride Flush Syringe 10 Ml) 10 ml IV PRN PRN PRN Reason: LINE FLUSH Review of Systems Constitutional: no weight loss, no weight gain, no fever, no chills, no sweats Ears, nose, mouth and throat: no ear pain, no nose pain, no nasal congestion, no mouth pain, no dysphagia Cardiovascular: orthopnea, edema (BLE), shortness of breath, dyspnea on exertion, paroxysmal nocturnal dyspnea, no chest pain, no palpitations, no rapid/irregular heart beat, no syncope, no lightheadedness Respiratory: hemoptysis, shortness of breath, dyspnea on exertion Gastrointestinal: nausea, vomiting, no abdominal pain, no diarrhea, no constipation Genitourinary Male: no dysuria, no flank pain Musculoskeletal: no muscle weakness, no muscle cramps Integumentary: no rash, no wounds Neurological: no head injury, no paralysis, no weakness, no parathesias, no numbness, no tingling, no seizures, no syncope, no tremors, no vertigo, no headaches Endocrine: no cold intolerance, no heat intolerance Hematologic/Lymphatic: no easy bruising, no easy bleeding Allergic/Immunologic: no urticaria Physical Examination Last Vital Signs Temp 98.6 F 07/05/19 08:17 Pulse 113 H 07/05/19 10:14 Resp 18 07/05/19 08:17 BP 137/69 07/05/19 10:14 Pulse Ox 98 07/05/19 08:17 General appearance: no acute distress HEENT: Positive: EOMI, Normocephaly, Mucus Membranes Moist Neck: Positive: neck supple, trachea midline. Negative: JVD/HJR Cardiac: Positive: Reg Rate and Rhythm, S1/S2 Lungs: Positive: Wheezes (reyna) Neuro: Positive: Grossly Intact, Motor Function Intact, Coordination Normal, Sensory Function Intact Abdomen: Positive: Soft, Active Bowel Sounds. Negative: Tender Skin: Negative: Rash, Wound Musculoskeletal: No Pain Extremities: Present: upper extr. pulses, lower extr. pulses, edema, +1 Edema (BLE), warm Results 07/05/19 05:46 07/05/19 05:46 Coagulation 07/04/19 07/05/19 Range/Units 20:03 05:46 PT 16.5 H 16.9 H (12.2-14.9) Sec. INR 1.31 H 1.35 H (0.87-1.13) APTT 29.9 28.9 (24.2-36.6) Sec. CBC 07/04/19 07/05/19 Range/Units 20:03 05:46 WBC 4.0 L 4.1 L (4.5-11.0) K/mm3 RBC 5.29 H 4.74 (3.65-5.03) M/mm3 Hgb 14.0 12.3 (11.8-15.2) gm/dl Hct 42.1 37.7 (35.5-45.6) % Plt Count 228 208 (140-440) K/mm3 Lymph # 1.7 (1.2-5.4) K/mm3 [place] # 0.2 (0.0-0.8) K/mm3 Eos # 0.1 (0.0-0.4) K/mm3 Baso # 0.0 (0.0-0.1) K/mm3 Comprehensive Metabolic Panel 07/04/19 07/05/19 Range/Units 20:03 05:46 Sodium 140 140 (137-145) mmol/L Potassium 4.2 3.9 (3.6-5.0) mmol/L Chloride 102.2 102.8 (98-107) mmol/L Carbon Dioxide 23 21 L (22-30) mmol/L BUN 17 17 (9-20) mg/dL Creatinine 1.4 1.3 (0.8-1.5) mg/dL Glucose 110 H 106 H (75-100) mg/dL Calcium 9.7 9.1 (8.4-10.2) mg/dL - Imaging and Cardiology Echo: report reviewed (05/15/2019 - LA mildly dilated; RA mildly dilated; EF 10- 15%; LV mildly dilated; trace MR; mild TR; RV mod dilated; RV sys function mod reduced) Cardiac cath: report reviewed (05/15/2019 - dilated LV w/severe diffuse hypokinesis; EF 10%; normal coronary anatomy) EKG: report reviewed, image reviewed - EKG Interpretation EKG: no acute changes EKG interpretations - Telemetry EKG Rhythm: Sinus Rhythm - EKG Sinus rhythms and dysrhythmias: sinus tachycardia Assessment and Plan D/c Digoxin, increase Coreg as tolerated, continue IV Lasix BID and Lisinopril. No plans for any additional cardiac workup at this time. Will follow. The patient has been seen in conjunction with Dr. Pineda, who agrees with the asses sment and plan of care. - Patient Problems (1) Acute on chronic HFrEF (heart failure with reduced ejection fraction) Current Visit: Yes Status: Acute (2) Nonischemic cardiomyopathy Current Visit: Yes Status: Chronic (3) Hypertension Current Visit: Yes Status: Chronic Qualifiers: Hypertension type: essential hypertension Qualified Code(s): I10 - Essential (primary) hypertension (4) H/O alcohol abuse Current Visit: No Status: Chronic
[2019-07-05] MEDS ORDERED: DIGOXIN 0.125 MG TAB PO SCH (17:00)
[2019-07-06] MEDS: HEPARIN 5,000 UNIT/1 ML VIAL SUB-Q SCH (06:54)
[2019-07-06] MEDS: FUROSEMIDE 40 MG/4 ML INJ IV SCH (06:54)
[2019-07-06 11:39] VITALS: BP 124/90
[2019-07-06] MEDS: LISINOPRIL 5 MG TAB PO SCH (11:49)
[2019-07-06] MEDS: carvediloL 3.125 MG TAB PO SCH (11:49)
--- NOTE | 2019-07-06 12:48 | Progress Note ---
Assessment and Plan Currently stable cardiac status. Pt appears to be nearing/at euvolemia. Cont coreg and lisinopril, digoxin d/c'd. LifeVest in place. Pt may discharge from cardiology standpoint. At discharge recommend PO lasix 40mg daily. Follow up in our [place] office with Dr. Guadarrama on 07/11/2019 @ 1:30PM. The patient has been seen in conjunction with Dr. Pineda who agrees with the assessment and plan of care. - Patient Problems (1) Acute on chronic HFrEF (heart failure with reduced ejection fraction) Current Visit: Yes Status: Acute (2) Nonischemic cardiomyopathy Current Visit: Yes Status: Chronic (3) Hypertension Current Visit: Yes Status: Chronic Qualifiers: Hypertension type: essential hypertension Qualified Code(s): I10 - Essential (primary) hypertension (4) H/O alcohol abuse Current Visit: No Status: Chronic Subjective Date of service: 07/06/19 Principal diagnosis: HF Interval history: pt resting in bed, states he is feeling much better today. in SR on tele, no acute events overnight. Lifevest in place. Objective Last Vital Signs Temp 98.3 F 07/06/19 11:35 Pulse 101 H 07/06/19 11:35 Resp 18 07/06/19 11:35 BP 124/90 07/06/19 11:35 Pulse Ox 92 07/06/19 11:35 - Physical Examination General: No Apparent Distress HEENT: Positive: EOMI, Normocephaly, Mucus Membranes Moist Neck: Positive: neck supple, trachea midline. Negative: JVD/HJR Cardiac: Positive: Reg Rate and Rhythm, S1/S2 Lungs: Positive: Decreased Breath Sounds Neuro: Positive: Grossly Intact, Motor Function Intact, Coordination Normal, Sensory Function Intact Abdomen: Positive: Soft, Active Bowel Sounds. Negative: Tender Skin: Negative: Rash, Wound Musculoskeletal: No Pain Extremities: Present: upper extr. pulses, lower extr. pulses, edema, +1 Edema (BLE), warm - Imaging and Cardiology EKG: report reviewed, image reviewed Echo: report reviewed (05/15/2019 - LA mildly dilated; RA mildly dilated; EF 10- 15%; LV mildly dilated; trace MR; mild TR; RV mod dilated; RV sys function mod reduced) Cardiac cath: report reviewed (05/15/2019 - dilated LV w/severe diffuse hypo kinesis; EF 10%; normal coronary anatomy) - Telemetry EKG Rhythm: Sinus Rhythm - EKG Sinus rhythms and dysrhythmias: sinus tachycardia
--- NOTE | 2019-07-06 14:22 | Discharge Summary ---
Providers - Providers Date of Admission: 07/04/19 21:48 Date of discharge: 07/06/19 Attending physician: JERI SUNG 07/04/19 22:38 Consult to Dietitian/Nutrition [CONS] Routine Physician Instructions: Reason For Exam: Reason for Consult: Diet education 07/05/19 05:46 Consult to Physician [CONS] Routine Comment: Consulting Provider: MURPHY MORENO Physician Instructions: Reason For Exam: acute on chronic CHF Primary care physician: GHAZAL DORSEY Hospitalization Condition: Stable Hospital course: Pt is a 34 y.o. AA male with a past medical hx of NICMP (dx Apr 2019), chronic HFrEF (EF 10%), HTN, and previous alcohol abuse who was recently discharged from [facility] following acute HF exacerbation and re-presented 07/04/2019 with c/o BLE edema and SOB x 1 day [employer]. He reported that he has been taking all of his medications as prescribed and had been wearing his LifeVest. CXR showed mild cardiomegaly with no acute lung disease noted. BNP however was elevated. The patient was admitted with diagnosis of acute hypoxic respiratory failure secondary to acute on chronic systolic heart failure exacerbation. The patient was treated with IV Lasix twice daily, Coreg and RICHARD inhibitor. Cardiology saw the patient in consultation and continued the medical therapy as outlined. Cardiology did make some adjustments with discontinuing digoxin but increase Coreg and felt patient could discharge home. Patient returned to a euvolemic status and was felt to have received maximal hospital benefit for discharge. Dedicated discharge time 35 minutes. Disposition: - TO HOME OR SELFCARE Time spent for discharge: 35 - Discharge Diagnoses (1) Acute on chronic HFrEF (heart failure with reduced ejection fraction) Status: Acute (2) Shortness of breath Status: Acute (3) Hypertension Status: Chronic Qualifiers: Hypertension type: essential hypertension Qualified Code(s): I10 - Essential (primary) hypertension (4) Nonischemic cardiomyopathy Status: Chronic (5) Acute respiratory failure Status: Acute Qualifiers: Respiratory failure complication: hypoxia Qualified Code(s): J96.01 - Acute respiratory failure with hypoxia (6) Heart failure Status: Acute Qualifiers: Heart failure type: unspecified (7) H/O alcohol abuse Status: Resolved Core Measure Documentation - Palliative Care Palliative Care/ Comfort Measures: Not Applicable - Core Measures Any of the following diagnoses?: heart failure - Heart Failure Discharge Requirements RICHARD/ARB for LVSD if EF <40%: Yes Beta francisco at discharge: Yes Exam - Constitutional Vitals: Temp Pulse Resp BP Pulse Ox 98.3 F 101 H 18 124/90 92 07/06/19 11:35 07/06/19 11:35 07/06/19 11:35 07/06/19 11:35 07/06/19 11:35 General appearance: Present: no acute distress, well-nourished - EENT Eyes: Present: PERRL ENT: hearing intact, clear oral mucosa - Neck Neck: Present: supple, normal ROM - Respiratory Respiratory effort: normal Respiratory: bilateral: CTA - Cardiovascular Heart Sounds: Present: S1 & S2. Absent: rub, click - Extremities Extremities: pulses symmetrical, No edema Peripheral Pulses: within normal limits - Abdominal General gastrointestinal: Present: soft, non-tender, non-distended, normal bowel sounds Male genitourinary: Present: normal - Integumentary Integumentary: Present: clear, warm, dry - Musculoskeletal Musculoskeletal: gait normal, strength equal bilaterally - Psychiatric Psychiatric: appropriate mood/affect, intact judgment & insight - Neurologic Neurologic: CNII-XII intact, moves all extremities Plan Activity: advance as tolerated Weight Bearing Status: Weight Bear as Tolerated Diet: low fat, low cholesterol, low salt Follow up with: GHAZAL DORSEY MD [Primary Care Provider] - 3-5 Days Prescriptions: carvediloL [Coreg] 3.125 mg PO BID #60 tablet Furosemide [Lasix TAB] 40 mg PO QDAY #30 tablet lisinopriL [Zestril TAB] 5 mg PO QDAY #30 tablet
== END 2019-07-06 16:00 | disposition home or self-care (01) | DRG 291 ==
LOC: ED 19:33 → 4A 21:48
PROVIDERS: ADMIT Internal Medicine Geriatric Medicine; ATTEND Hospitalist
DX: I11.0 Hypertensive heart disease with heart failure (principal); J96.01 Acute respiratory failure with hypoxia; I50.23 Acute on chronic systolic (congestive) heart failure; I42.8 Other cardiomyopathies; Z79.51 Long term (current) use of inhaled steroids; Z79.899 Other long term (current) drug therapy; I25.2 Old myocardial infarction; Z87.891 Personal history of nicotine dependence
CPT/HCPCS: 36415; 71045; 80048; 80162; 82962; 83735; 83880; 84484; 85007; 85025; 85610; 85730; 93005; 93010; 96374; G0378; J1644; J1940

== ENCOUNTER 2019-12-16 00:58 | Inpatient (IN) | payer MEDICAID ==
[2019-12-16 01:39] LABS: Basophils # (Auto) 0.1 K/mm3 (0.0-0.1); Basophils % (Auto) 2.9 % (0.0-1.8); Eosinophils # (Auto) 0.2 K/mm3 (0.0-0.4); Eosinophils % (Auto) 5.2 % (0.0-4.3); Lymphocytes # (Auto) 1.5 K/mm3 (1.2-5.4); Lymphocytes % (Auto) 34.7 % (13.4-35.0); Mean Corpuscular HGB Conc 30 % (32-34); Mean Corpuscular Volume 75 fl (84-94); Monocytes # (Auto) 0.2 K/mm3 (0.0-0.8); Monocytes % (Auto) 5.3 % (0.0-7.3); Platelet Count 194 K/mm3 (140-440); Red Blood Count 5.83 M/mm3 (3.65-5.03)
[2019-12-16 01:40] LABS: Hematocrit 43.6 % (35.5-45.6); Hemoglobin 13.1 gm/dl (11.8-15.2); Red Cell Distribution Width 21.4 % (13.2-15.2)
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
--- NOTE | 2019-12-16 01:50 | XRay Report ---
CHEST 1 VIEW 0140 INDICATION / CLINICAL INFORMATION: Chest Pain COMPARISON: 09/27/2019 FINDINGS: SUPPORT DEVICES: None HEART / MEDIASTINUM: No significant abnormality. LUNGS / PLEURA: Less than full degree of inspiration is seen. Right hemidiaphragm now shows mild elev ation. Mild diffuse markings in the right lung probably related to low lung volumes. No definite acut e infiltrates are seen. No pneumothorax. ADDITIONAL FINDINGS: No significant additional findings. IMPRESSION: No significant acute abnormality Signer Name: Dhruv Jean MD Signed: 12/16/2019 1:45 AM Workstation Name: [id number]
[2019-12-16 02:19] LABS: BUN/Creatinine Ratio 15; Blood Urea Nitrogen 17 mg/dL (9-20); Calcium 9.4 mg/dL (8.4-10.2); Hemolysis Index 38
[2019-12-16 02:23] LABS: Albumin 4.1 g/dL (3.9-5); Bilirubin,Direct 1.9 mg/dL (0-0.2)
[2019-12-16] MEDS ORDERED: FUROSEMIDE 40 MG/4 ML INJ IV ONE (02:29)
[2019-12-16] MEDS ORDERED: ACETAMINOPHEN 325 MG TAB PO PRN (03:39)
--- NOTE | 2019-12-16 03:47 | History and Physical Report ---
History of Present Illness Date of examination: 12/16/19 Date of admission: 12/16/19 Chief complaint: SHORTNESS OF BREATH History of present illness: 34 year old male presenting with 2 day history of shortness of breath and edema. There is no chest pain, fever or chills, there is no cough , body ache , nausea or vomiting. Past History Past Medical History: acute [place], CAD, heart failure, hypertension, other (PNEUMONIA) Past Surgical History: No surgical history Social history: no significant social history Family history: no significant family history Medications and Allergies Allergies Allergy/AdvReac Type Severity Reaction Status Date / Time No Known Allergies Allergy Verified 09/27/19 03:17 Home Medications Medication Instructions Recorded Confirmed Last Taken Type Albuterol Mdi (or & Nicu Only) 2 puff IH QID PRN #1 inh 05/05/19 09/27/19 09/23/19 Rx [ProAir HFA Inhaler] lisinopriL [Zestril TAB] 5 mg PO QDAY #30 tablet 07/06/19 09/27/19 09/26/19 Rx Aspirin EC [Halfprin EC] 81 mg PO QDAY #30 tablet 10/01/19 Unknown Rx AtorvaSTATin [Lipitor] 20 mg PO QHS #30 tablet 10/01/19 Unknown Rx Furosemide [Lasix TAB] 40 mg PO QDAY #30 tablet 10/01/19 Unknown Rx carvediloL [Coreg] 3.125 mg PO BID #60 tablet 10/01/19 Unknown Rx metOLazone [Zaroxolyn] 5 mg PO DAILY@1730 #30 tablet 10/01/19 Unknown Rx Active Meds: Active Medications Acetaminophen (Tylenol) 650 mg PO Q4H PRN PRN Reason: Fever >101 Furosemide (Lasix) 40 mg IV QDAY CAMERON Heparin Sodium (Porcine) (Heparin) 5,000 unit SUB-Q Q12HR [facility] Nitroglycerin (Nitro-Bid 2%) 0.5 inch TP BIDNTG [facility]; Protocol Review of Systems Constitutional: weight gain, weakness, no weight loss, no fever, no chills, no sweats, no night sweats, no fatigue, no malaise, no lethargy Eyes: bilateral: other (NO BILATERAL EYE SYMPTOM) Ears, nose, mouth and throat: no ear pain, no dysphagia, no sore throat, no headache, no vertigo Cardiovascular: edema, shortness of breath, no chest pain, no orthopnea, no palpitations, no rapid/irregular heart beat, no syncope, no lightheadedness, no dyspnea on exertion Respiratory: shortness of breath, no cough, no congestion, no wheezing, no pleurisy, no pain, no home oxygen Gastrointestinal: no abdominal pain, no nausea, no vomiting, no diarrhea, no constipation, no change in bowel habits, no hematemesis, no hematochezia, no loss of appetite, no early satiety, no heartburn Genitourinary Male: no urinary frequency, no urinary hesitancy, no nocturia, no incontinence, no testicular pain Rectal: no pain, no itching Musculoskeletal: no neck stiffness, no neck pain, no shooting arm pain, no arm numbness/tingling, no low back pain, no morning stiffness, no muscle weakness Integumentary: no rash, no pruritis, no redness, no sores, no wounds, no jaundice, no lesions, no darkening of skin, no hirsutism, no foot/leg ulcers Neurological: no paralysis, no weakness, no parathesias, no numbness, no tingling, no seizures, no syncope, no tremors, no ataxia, no vertigo, no headaches, no aphasia, no change in speech, no change in mentation, no confusion, no memory loss, no sensory deficit, no double vision, no loss of vision, no hearing difficulties, no burning pain Psychiatric: no anxiety, no memory loss, no change in sleep habits, no sleep disturbances, no hypersomnia, no depression, no hopelessness, no anxiety attacks, no confusion, no irritability Endocrine: no polyphagia, no excessive thirst, no polydipsia, no polyuria, no nocturia, no thyroid mass, no palpatations Hematologic/Lymphatic: no easy bruising, no easy bleeding, no lymphadenopathy, no lymphedema, no thrombophilia Exam - Constitutional Vitals: Temp Pulse Resp BP Pulse Ox 97.6 F 111 H 28 H 128/89 99 12/16/19 01:07 12/16/19 03:00 12/16/19 03:00 12/16/19 03:00 12/16/19 03:00 General appearance: Present: no acute distress - EENT Eyes: Present: PERRL, EOM intact ENT: hearing intact, clear oral mucosa - Neck Neck: Present: supple, normal ROM. Absent: carotid bruits - Respiratory Respiratory effort: normal - Cardiovascular Rhythm: irregularly irregular Heart Sounds: Present: S1 & S2. Absent: gallop, systolic murmur, diastolic murmur - Extremities Extremities: no ischemia Extremity abnormal: edema Peripheral Pulses: within normal limits - Abdominal General gastrointestinal: Present: soft, non-tender, non-distended. Absent: t pavel, distended, rigid, hepatomegaly, splenomegaly, mass Male genitourinary: Present: deferred - Rectal Rectal Exam: deferred - Integumentary Integumentary: Present: clear, warm - Musculoskeletal Musculoskeletal: strength equal bilaterally - Psychiatric Psychiatric: appropriate mood/affect HEART Score - HEART Score Age: < 45 Risk factors: 1-2 risk factors Troponin: Troponin T < 0.010 ng/mL (0.00-0.029) 12/16/19 01:20 Troponin: < normal limit - Critical Actions Critical Actions: 0-3 pts:0.9-1.7%risk of adverse cardiac event.Candidate for discharge Results - Labs CBC & Chem 7: 12/16/19 01:20 12/16/19 01:20 Labs: Laboratory Last Values WBC 4.2 K/mm3 (4.5-11.0) L 12/16/19 01:20 RBC 5.83 M/mm3 (3.65-5.03) H 12/16/19 01:20 Hgb 13.1 gm/dl (11.8-15.2) 12/16/19 01:20 Hct 43.6 % (35.5-45.6) 12/16/19 01:20 MCV 75 fl (84-94) L 12/16/19 01:20 MCH 22 pg (28-32) L 12/16/19 01:20 MCHC 30 % (32-34) L 12/16/19 01:20 RDW 21.4 % (13.2-15.2) H 12/16/19 01:20 Plt Count 194 K/mm3 (140-440) 12/16/19 01:20 Lymph % (Auto) 34.7 % (13.4-35.0) 12/16/19 01:20 [place] % (Auto) 5.3 % (0.0-7.3) 12/16/19 01:20 Eos % (Auto) 5.2 % (0.0-4.3) H 12/16/19 01:20 Baso % (Auto) 2.9 % (0.0-1.8) H 12/16/19 01:20 Lymph # 1.5 K/mm3 (1.2-5.4) 12/16/19 01:20 [place] # 0.2 K/mm3 (0.0-0.8) 12/16/19 01:20 Eos # 0.2 K/mm3 (0.0-0.4) 12/16/19 01:20 Baso # 0.1 K/mm3 (0.0-0.1) 12/16/19 01:20 Seg Neutrophils % 51.9 % (40.0-70.0) 12/16/19 01:20 Seg Neutrophils # 2.2 K/mm3 (1.8-7.7) 12/16/19 01:20 Sodium 138 mmol/L (137-145) 12/16/19 01:20 Potassium 5.0 mmol/L (3.6-5.0) 12/16/19 01:20 Chloride 102.8 mmol/L (98-107) 12/16/19 01:20 Carbon Dioxide 18 mmol/L (22-30) L 12/16/19 01:20 Anion Gap 22 mmol/L 12/16/19 01:20 BUN 17 mg/dL (9-20) 12/16/19 01:20 Creatinine 1.1 mg/dL (0.8-1.3) 12/16/19 01:20 Estimated GFR > 60 ml/min 12/16/19 01:20 BUN/Creatinine Ratio 15 % 12/16/19 01:20 Glucose 113 mg/dL (75-100) H 12/16/19 01:20 Calcium 9.4 mg/dL (8.4-10.2) 12/16/19 01:20 Total Bilirubin 3.60 mg/dL (0.1-1.2) H 12/16/19 01:31 Direct Bilirubin 1.9 mg/dL (0-0.2) H 12/16/19 01:31 Indirect Bilirubin 1.7 mg/dL 12/16/19 01:31 AST 39 units/L (5-40) 12/16/19 01:31 ALT 20 units/L (7-56) 12/16/19 01:31 Alkaline Phosphatase 108 units/L (35-129) 12/16/19 01:31 Troponin T < 0.010 ng/mL (0.00-0.029) 12/16/19 01:20 NT-Pro-B Natriuret Pep 4618 pg/mL (0-450) H 12/16/19 01:20 Total Protein 7.7 g/dL (6.3-8.2) 12/16/19 01:31 Albumin 4.1 g/dL (3.9-5) 12/16/19 01:31 Albumin/Globulin Ratio 1.1 % 12/16/19 01:31 Ayala/IV: IV Catheter Type [Right Hand] INT / Saline Lock Assessment and Plan - Patient Problems (1) Acute exacerbation of CHF (congestive heart failure) Current Visit: No Status: Acute Plan to address problem: 1. Telemetry admission 2. Serial Cardiac Enzymes 3. 2 D Echocardiogram 4. Nitroglycerin paste 5. Cardiology consult 6. I.V lasix 7.Oxygen by Nasal cannula 8 .Aspirin po
[2019-12-16] MEDS: HEPARIN 5,000 UNIT/1 ML VIAL SUB-Q SCH ×3 (06:39→21:40)
[2019-12-16] MEDS: NITROGLYCERIN 2% OINT 1 GM TP SCH ×2 (06:39→14:47)
[2019-12-16 07:51] LABS: Creatine Kinase MB 1.1 ng/mL (0.0-4.0)
[2019-12-16] MEDS ORDERED: FUROSEMIDE 40 MG/4 ML INJ IV SCH (10:00)
[2019-12-16] MEDS ORDERED: ASPIRIN 325 MG TAB ONE (10:25)
[2019-12-16] MEDS ORDERED: FUROSEMIDE 20 MG/2 ML INJ ONE (10:25)
[2019-12-16] MEDS: ASPIRIN 325 MG TAB PO SCH (10:26)
[2019-12-16] MEDS ORDERED: HEPARIN 5,000 UNIT/1 ML VIAL ONE (10:26)
--- NOTE | 2019-12-16 11:04 | Progress Note ---
Assessment and Plan Assessment and plan: 34-year-old -Spanish male who presents to the emergency department from home with a complaint of a 1 to 2-day history of shortness of breath, and a progressive buildup of fluid/edema. The patient has a past medical history that includes dilated nonischemic cardiomyopathy, congestive heart failure with an EF of 5 to 10%, LifeVest, hypertension and previous alcohol abuse. Patient follows with Dr. Guadarrama for cardiology. Patient says that he has been adhering to his home medications, including 40 mg of Lasix twice daily, and has been cautious about his diet and fluid intake. However, despite that, the patient has had increased swelling to the bilateral lower extremities and up into the abdomen. He began having the shortness of breath 2 days ago which is what he says brought him him to the ER. No recent travel or sick contacts at home. He denies any chest pain, fever, nausea, vomiting or diaphoresis. (1) Acute on chronic HFrEF (heart failure with reduced ejection fraction) Current Visit: Yes Status: Acute (2) Nonischemic cardiomyopathy Current Visit: Yes Status: Chronic (3) Sinus tachycardia Current Visit: Yes Status: Acute (4) Abdominal pain Current Visit: Yes Status: Acute Qualifiers: Abdominal location: generalized Qualified Code(s): R10.84 - Generalized abdominal pain (5) Hx of myocardial infarction Current Visit: Yes Status: Chronic (6) H/O alcohol abuse Current Visit: No Status: Resolved (7) Hyperbilirubenemia (8) H/O chronic kidney disease Current Visit: No Status: Resolved Plan Continue diruresis CHF protocol Dietary and fluid intake compliance discussed with the patient Monitor electrolytes Consult GI Us abdomen Echo pending. Continue BB and RICHARD as ordered. dvt/gi PROPHY History Interval history: Patient seen and examined, still with shortness of breath, reports abdomen tightness and lower ext swelling Hospitalist Physical - Physical exam Narrative exam: General appearance: Present: no acute distress - EENT Eyes: Present: PERRL, EOM intact ENT: hearing intact, clear oral mucosa - Neck Neck: Present: supple, normal ROM. Absent: carotid bruits - Respiratory Respiratory effort: normal - Cardiovascular Rhythm: irregularly irregular Heart Sounds: Present: S1 & S2. Absent: gallop, systolic murmur, diastolic murmur - Extremities Extremities: no ischemia Extremity abnormal: edema Peripheral Pulses: within normal limits - Abdominal General gastrointestinal: Present: soft, non-tender, non-distended. Absent: tender, distended, rigid, hepatomegaly, splenomegaly, mass Male genitourinary: Present: deferred - Rectal Rectal Exam: deferred - Integumentary Integumentary: Present: clear, warm - Musculoskeletal Musculoskeletal: strength equal bilaterally - Psychiatric Psychiatric: appropriate mood/affect - Constitutional Vitals: Temp Pulse Resp BP Pulse Ox 97.6 F 107 H 21 106/79 99 12/16/19 01:07 12/16/19 07:00 12/16/19 07:00 12/16/19 07:00 12/16/19 03:00 General appearance: Present: no acute distress HEART Score - HEART Score Age: < 45 Risk factors: 1-2 risk factors Troponin: Troponin T < 0.010 ng/mL (0.00-0.029) 12/16/19 06:57 Troponin: < normal limit - Critical Actions Critical Actions: 0-3 pts:0.9-1.7%risk of adverse cardiac event.Candidate for discharge Results - Labs CBC & Chem 7: 12/16/19 01:20 12/16/19 01:20 Labs: Laboratory Last Values WBC 4.2 K/mm3 (4.5-11.0) L 12/16/19 01:20 RBC 5.83 M/mm3 (3.65-5.03) H 12/16/19 01:20 Hgb 13.1 gm/dl (11.8-15.2) 12/16/19 01:20 Hct 43.6 % (35.5-45.6) 12/16/19 01:20 MCV 75 fl (84-94) L 12/16/19 01:20 MCH 22 pg (28-32) L 12/16/19 01:20 MCHC 30 % (32-34) L 12/16/19 01:20 RDW 21.4 % (13.2-15.2) H 12/16/19 01:20 Plt Count 194 K/mm3 (140-440) 12/16/19 01:20 Lymph % (Auto) 34.7 % (13.4-35.0) 12/16/19 01:20 [place] % (Auto) 5.3 % (0.0-7.3) 12/16/19 01:20 Eos % (Auto) 5.2 % (0.0-4.3) H 12/16/19 01:20 Baso % (Auto) 2.9 % (0.0-1.8) H 12/16/19 01:20 Lymph # 1.5 K/mm3 (1.2-5.4) 12/16/19 01:20 [place] # 0.2 K/mm3 (0.0-0.8) 12/16/19 01:20 Eos # 0.2 K/mm3 (0.0-0.4) 12/16/19 01:20 Baso # 0.1 K/mm3 (0.0-0.1) 12/16/19 01:20 Seg Neutrophils % 51.9 % (40.0-70.0) 12/16/19 01:20 Seg Neutrophils # 2.2 K/mm3 (1.8-7.7) 12/16/19 01:20 Sodium 138 mmol/L (137-145) 12/16/19 01:20 Potassium 5.0 mmol/L (3.6-5.0) 12/16/19 01:20 Chloride 102.8 mmol/L (98-107) 12/16/19 01:20 Carbon Dioxide 18 mmol/L (22-30) L 12/16/19 01:20 Anion Gap 22 mmol/L 12/16/19 01:20 BUN 17 mg/dL (9-20) 12/16/19 01:20 Creatinine 1.1 mg/dL (0.8-1.3) 12/16/19 01:20 Estimated GFR > 60 ml/min 12/16/19 01:20 BUN/Creatinine Ratio 15 % 12/16/19 01:20 Glucose 113 mg/dL (75-100) H 12/16/19 01:20 Calcium 9.4 mg/dL (8.4-10.2) 12/16/19 01:20 Total Bilirubin 3.60 mg/dL (0.1-1.2) H 12/16/19 01:31 Direct Bilirubin 1.9 mg/dL (0-0.2) H 12/16/19 01:31 Indirect Bilirubin 1.7 mg/dL 12/16/19 01:31 AST 39 units/L (5-40) 12/16/19 01:31 ALT 20 units/L (7-56) 12/16/19 01:31 Alkaline Phosphatase 108 units/L (35-129) 12/16/19 01:31 Total Creatine Kinase 96 units/L (55-170) 12/16/19 06:57 CK-MB (CK-2) 1.1 ng/mL (0.0-4.0) 12/16/19 06:57 CK-MB (CK-2) Rel Index 1.1 (0-4) 12/16/19 06:57 Troponin T < 0.010 ng/mL (0.00-0.029) 12/16/19 06:57 NT-Pro-B Natriuret Pep 4618 pg/mL (0-450) H 12/16/19 01:20 Total Protein 7.7 g/dL (6.3-8.2) 12/16/19 01:31 Albumin 4.1 g/dL (3.9-5) 12/16/19 01:31 Albumin/Globulin Ratio 1.1 % 12/16/19 01:31 Ayala/IV: IV Catheter Type [Right Hand] INT / Saline Lock Active Medications - Current Medications Current Medications: Generic Name Dose Route Start Last Admin Trade Name Freq PRN Reason Stop Dose Admin Acetaminophen 650 mg 12/16/19 03:39 Tylenol PO Q4H PRN Fever >101 Albuterol 2 puff 12/16/19 11:02 Proair IH QID PRN Shortness Of Breath Aspirin 325 mg 12/16/19 10:00 12/16/19 10:26 Aspirin PO 325 mg QDAY CAMERON Administration Aspirin 81 mg 12/17/19 10:00 Halfprin Ec PO QDAY CAMERON Atorvastatin Calcium 20 mg 12/16/19 22:00 Lipitor PO QHS CAMERON Carvedilol 3.125 mg 12/16/19 22:00 Coreg PO BID CAMERON Furosemide 40 mg 12/16/19 10:00 12/16/19 10:28 Lasix IV 40 mg QDAY CAMERON Administration Heparin Sodium (Porcine) 5,000 unit 12/16/19 03:45 12/16/19 06:39 Heparin SUB-Q 5,000 unit Q12HR CAMERON Administration Nitroglycerin 0.5 inch 12/16/19 06:00 12/16/19 06:39 Nitro-Bid 2% TP 0.5 inch BIDNTG [facility] Administration Protocol
[2019-12-16] MEDS ORDERED: ALBUTEROL 8.5 GM MDI INHALATION IH PRN (12:00)
[2019-12-16 12:47] LABS: Creatine Kinase MB 1.3 ng/mL (0.0-4.0)
--- NOTE | 2019-12-16 15:18 | Consultation ---
History of Present Illness - Reason for Consult Consult date: 12/16/19 Hyperbilirubinemia Requesting physician: MARTINE BENAVIDEZ - History of Present Illness 34 yo BM admitted with exacerbation of CHF, on whom I am consulted for hyperbilirubinemia. Pt had NE in 04/2019, and states he has severe CHF with LVEF ~ 10%. No known hx of liver disease. No EtOH. Pt had elevated T Bili during last admission in 09/2019. No abd pain, N/V, GI bleed. Meds reviewed. Past History Past Medical History: acute NE, CAD, heart failure, hypertension, other (PNEUMONIA) Past Surgical History: No surgical history Social history: no significant social history Family history: no significant family history Medications and Allergies Allergies Allergy/AdvReac Type Severity Reaction Status Date / Time No Known Allergies Allergy Verified 09/27/19 03:17 Home Medications Medication Instructions Recorded Confirmed Last Taken Type Albuterol Mdi (or & Nicu Only) 2 puff IH QID PRN #1 inh 05/05/19 09/27/19 09/23/19 Rx [ProAir HFA Inhaler] lisinopriL [Zestril TAB] 5 mg PO QDAY #30 tablet 07/06/19 09/27/19 09/26/19 Rx Aspirin EC [Halfprin EC] 81 mg PO QDAY #30 tablet 10/01/19 Unknown Rx AtorvaSTATin [Lipitor] 20 mg PO QHS #30 tablet 10/01/19 Unknown Rx Furosemide [Lasix TAB] 40 mg PO QDAY #30 tablet 10/01/19 Unknown Rx carvediloL [Coreg] 3.125 mg PO BID #60 tablet 10/01/19 Unknown Rx metOLazone [Zaroxolyn] 5 mg PO DAILY@1730 #30 tablet 10/01/19 Unknown Rx Active Meds: Active Medications Acetaminophen (Tylenol) 650 mg PO Q4H PRN PRN Reason: Fever >101 Albuterol (Proair) 2 puff IH QID PRN PRN Reason: Shortness Of Breath Aspirin (Aspirin) 325 mg PO QDAY [facility] Last Admin: 12/16/19 10:26 Dose: 325 mg Documented by: Aspirin (Halfprin Ec) 81 mg PO QDAY CAMERON Atorvastatin Calcium (Lipitor) 20 mg PO QHS CAMERON Carvedilol (Coreg) 3.125 mg PO BID CAMERON Furosemide (Lasix) 40 mg IV QDAY [facility] Last Admin: 12/16/19 10:28 Dose: 40 mg Documented by: Heparin Sodium (Porcine) (Heparin) 5,000 unit SUB-Q Q12HR [facility] Last Admin: 12/16/19 11:02 Dose: Not Given Documented by: Lisinopril (Zestril) 5 mg PO QDAY [facility] Metolazone (Zaroxolyn) 5 mg PO DAILY@1730 [facility] Nitroglycerin (Nitro-Bid 2%) 0.5 inch TP BIDNTG [facility]; Protocol Last Admin: 12/16/19 14:47 Dose: Not Given Documented by: Review of Systems All systems: negative (for SOB, pedal edema, and chafing at scrotum and inner thighs) Exam - Constitutional Vitals: Temp Pulse Resp BP Pulse Ox 97.6 F 109 H 13 119/93 99 12/16/19 01:07 12/16/19 11:00 12/16/19 11:00 12/16/19 10:00 12/16/19 03:00 General appearance: Present: no acute distress - EENT Eyes: Present: PERRL, EOM intact ENT: hearing intact - Respiratory Respiratory effort: normal Respiratory: bilateral: rales (few crackles in R base) Results - Labs CBC & Chem 7: 12/16/19 01:20 12/16/19 01:20 Labs: Abnormal lab results 12/16/19 12/16/19 12/16/19 Range/Units 01:20 01:20 01:20 WBC 4.2 L (4.5-11.0) K/mm3 RBC 5.83 H (3.65-5.03) M/mm3 MCV 75 L (84-94) fl MCH 22 L (28-32) pg MCHC 30 L (32-34) % RDW 21.4 H (13.2-15.2) % Eos % (Auto) 5.2 H (0.0-4.3) % Baso % (Auto) 2.9 H (0.0-1.8) % Carbon Dioxide 18 L (22-30) mmol/L Glucose 113 H (75-100) mg/dL Total Bilirubin (0.1-1.2) mg/dL Direct Bilirubin (0-0.2) mg/dL NT-Pro-B Natriuret Pep 4618 H (0-450) pg/mL 12/16/19 Range/Units 01:31 WBC (4.5-11.0) K/mm3 RBC (3.65-5.03) M/mm3 MCV (84-94) fl MCH (28-32) pg MCHC (32-34) % RDW (13.2-15.2) % Eos % (Auto) (0.0-4.3) % Baso % (Auto) (0.0-1.8) % Carbon Dioxide (22-30) mmol/L Glucose (75-100) mg/dL Total Bilirubin 3.60 H (0.1-1.2) mg/dL Direct Bilirubin 1.9 H (0-0.2) mg/dL NT-Pro-B Natriuret Pep (0-450) pg/mL Assessment and Plan 1. Hyperbilirubinemia - due to cholestasis from severe CHF, and possibly related to medications. Transaminases and alkaline phosphatase normal, indicating no significant hepatocellular or obstructive disease. - optimize Cardiac status - no further GI evaluation warranted Will sign off. Thanks.
--- NOTE | 2019-12-16 16:33 | Consultation ---
History of Present Illness Consult date: 12/16/19 Requesting physician: LETICIA COLLINS Consult reason: congestive heart failure History of present illness: Pt is a 34 y.o. AA male with a past medical hx of dilated NICMP (dx Apr 2019) and chronic HFrEF (EF 5-10% - currently wearing LifeVest) who presented with complaints of progressively worsening BLE and abdominal edema x 4-5 days. Pt also reports mild FERGUSON. He endorses orthopnea/PND as well but states these sx have been improving recently compared to his baseline. In addition, pt reports persistent stomach pain and N/V, along with decreased appetite, all of which have been ongoing since Apr 2019. He denies any other cardiac sx. No recent fever/chills. Of note, pt is followed in our office by Dr. Guadarrama, who increased pts home Lasix from 40mg qDay to BID in the setting of BLE edema during his last follow-u p appointment on 09/21/2019. Pt states he has been compliant with all of his home medications, including Lasix. However, pt does admit to not adhering to fluid restrictions on occasion. BNP 4618. CXR reveals no acute findings. Echo 09/13/2019 - EF 5-10%; grade III diastolic dysfxn; RV mod dilated; mod RV hypokinesis; LA mod dilated; RA mod dilated; mod-severe TR; mild pHTN. LHC 05/15/2019 - normal coronary anatomy; dilated LV w/severe diffuse hypokinesis, EF 10%. Past History Past Medical History: acute SC, heart failure, hypertension, other (CKD) Social history: alcohol abuse (former) Medications and Allergies Allergies Allergy/AdvReac Type Severity Reaction Status Date / Time No Known Allergies Allergy Verified 09/27/19 03:17 Home Medications Medication Instructions Recorded Confirmed Last Taken Type Albuterol Mdi (or & Nicu Only) 2 puff IH QID PRN #1 inh 05/05/19 09/27/19 09/23/19 Rx [ProAir HFA Inhaler] lisinopriL [Zestril TAB] 5 mg PO QDAY #30 tablet 07/06/19 09/27/19 09/26/19 Rx Aspirin EC [Halfprin EC] 81 mg PO QDAY #30 tablet 10/01/19 Unknown Rx AtorvaSTATin [Lipitor] 20 mg PO QHS #30 tablet 10/01/19 Unknown Rx Furosemide [Lasix TAB] 40 mg PO QDAY #30 tablet 10/01/19 Unknown Rx carvediloL [Coreg] 3.125 mg PO BID #60 tablet 10/01/19 Unknown Rx metOLazone [Zaroxolyn] 5 mg PO DAILY@1730 #30 tablet 10/01/19 Unknown Rx Active Meds: Active Medications Acetaminophen (Tylenol) 650 mg PO Q4H PRN PRN Reason: Fever >101 Albuterol (Proair) 2 puff IH QID PRN PRN Reason: Shortness Of Breath Aspirin (Aspirin) 325 mg PO QDAY [facility] Last Admin: 12/16/19 10:26 Dose: 325 mg Documented by: Aspirin (Halfprin Ec) 81 mg PO QDAY [facility] Atorvastatin Calcium (Lipitor) 20 mg PO QHS [facility] Carvedilol (Coreg) 3.125 mg PO BID [facility] Furosemide (Lasix) 40 mg IV QDAY [facility] Last Admin: 12/16/19 10:28 Dose: 40 mg Documented by: Heparin Sodium (Porcine) (Heparin) 5,000 unit SUB-Q Q12HR [facility] Last Admin: 12/16/19 11:02 Dose: Not Given Documented by: Lisinopril (Zestril) 5 mg PO QDAY [facility] Metolazone (Zaroxolyn) 5 mg PO DAILY@1730 [facility] Nitroglycerin (Nitro-Bid 2%) 0.5 inch TP BIDNTG [facility]; Protocol Last Admin: 12/16/19 14:47 Dose: Not Given Documented by: Review of Systems Constitutional: weight gain, fatigue, poor appetite, no fever, no chills, no sweats Ears, nose, mouth and throat: no sore throat Cardiovascular: orthopnea, edema, shortness of breath, dyspnea on exertion, paroxysmal nocturnal dyspnea, no chest pain, no palpitations, no syncope, no lightheadedness, no claudication Respiratory: shortness of breath, dyspnea on exertion, no cough, no wheezing Gastrointestinal: abdominal pain, nausea, vomiting, no diarrhea, no constipation Genitourinary Male: no dysuria, no flank pain Musculoskeletal: no neck stiffness, no neck pain Integumentary: no rash, no wounds Neurological: no head injury, no paralysis, no weakness, no parathesias, no numbness, no tingling, no seizures, no syncope, no vertigo, no headaches Endocrine: no cold intolerance, no heat intolerance, no polydipsia, no polyuria Hematologic/Lymphatic: no easy bruising, no easy bleeding Allergic/Immunologic: no urticaria, no angioedema Physical Examination Last Vital Signs Temp 97.6 F 12/16/19 01:07 Pulse 109 H 12/16/19 11:00 Resp 13 12/16/19 11:00 BP 119/93 12/16/19 10:00 Pulse Ox 99 12/16/19 03:00 General appearance: no acute distress HEENT: Positive: EOMI, Normocephaly, Mucus Membranes Moist Neck: Positive: neck supple, trachea midline. Negative: JVD/HJR Cardiac: Positive: Reg Rate and Rhythm, S1/S2 Lungs: Positive: Decreased Breath Sounds (bilaterally) Neuro: Positive: Grossly Intact Abdomen: Positive: Active Bowel Sounds, Distended. Negative: Tender Skin: Negative: Rash, Wound Musculoskeletal: No Fluid Collection, No Pain, Normal Range of Motion Extremities: Present: upper extr. pulses, lower extr. pulses, +2 Edema (BLE) Results 12/16/19 01:20 12/16/19 01:20 Cardiac Enzymes 12/16/19 12/16/19 12/16/19 Range/Units 01:31 06:57 11:50 AST 39 (5-40) units/L CK-MB (CK-2) 1.1 1.3 (0.0-4.0) ng/mL CBC 12/16/19 Range/Units 01:20 WBC 4.2 L (4.5-11.0) K/mm3 RBC 5.83 H (3.65-5.03) M/mm3 Hgb 13.1 (11.8-15.2) gm/dl Hct 43.6 (35.5-45.6) % Plt Count 194 (140-440) K/mm3 Lymph # 1.5 (1.2-5.4) K/mm3 Leake # 0.2 (0.0-0.8) K/mm3 Eos # 0.2 (0.0-0.4) K/mm3 Baso # 0.1 (0.0-0.1) K/mm3 Comprehensive Metabolic Panel 12/16/19 12/16/19 Range/Units 01:20 01:31 Sodium 138 (137-145) mmol/L Potassium 5.0 (3.6-5.0) mmol/L Chloride 102.8 (98-107) mmol/L Carbon Dioxide 18 L (22-30) mmol/L BUN 17 (9-20) mg/dL Creatinine 1.1 (0.8-1.3) mg/dL Glucose 113 H (75-100) mg/dL Calcium 9.4 (8.4-10.2) mg/dL Direct Bilirubin 1.9 H (0-0.2) mg/dL Indirect Bilirubin 1.7 mg/dL AST 39 (5-40) units/L ALT 20 (7-56) units/L Alkaline Phosphatase 108 (35-129) units/L Total Protein 7.7 (6.3-8.2) g/dL Albumin 4.1 (3.9-5) g/dL - Imaging and Cardiology Echo: report reviewed (09/13/2019 - EF 5-10%; grade III diastolic dysfxn; RV mod dilated; mod RV hypokinesis; LA mod dilated; RA mod dilated; mod-severe TR; mild pHTN) Cardiac cath: report reviewed (05/15/2019 - normal coronary anatomy; dilated LV w/severe diffuse hypokinesis, EF 10%) EKG: report reviewed, image reviewed - EKG Interpretation EKG: no acute changes EKG interpretations - Telemetry EKG Rhythm: Sinus Tachycardia - EKG Sinus rhythms and dysrhythmias: sinus tachycardia Chamber hypertrophy or enlargement: left atrial enlargement Repolarization changes or abnormalities: Q-T interval prolongation Myocardial infarction: anterior SC (old age or i Assessment and Plan Echo pending. Increase IV Lasix to 40mg BID with strict I/Os. Closely monitor renal indices. Continue BB and RICHARD as ordered. Will re-address AICD candidacy as an outpatient. Will defer to Primary for mgmt of abd pain/N/V. Pt seen in conjunction with Dr. Puentes, who agrees with the assessment and plan of care. - Patient Problems (1) Acute on chronic HFrEF (heart failure with reduced ejection fraction) Current Visit: Yes Status: Acute (2) Nonischemic cardiomyopathy Current Visit: Yes Status: Chronic (3) Sinus tachycardia Current Visit: Yes Status: Acute (4) Abdominal pain Current Visit: Yes Status: Acute Qualifiers: Abdominal location: generalized Qualified Code(s): R10.84 - Generalized abdominal pain (5) Hx of myocardial infarction Current Visit: Yes Status: Chronic (6) H/O alcohol abuse Current Visit: No Status: Resolved (7) H/O chronic kidney disease Current Visit: No Status: Resolved
[2019-12-16] MEDS: metOLazone 5 MG TAB PO SCH (19:27)
[2019-12-16] MEDS: carvediloL 3.125 MG TAB PO SCH (21:39)
[2019-12-16] MEDS: FUROSEMIDE 40 MG/4 ML INJ IV SCH (21:40)
[2019-12-17] MEDS: ASPIRIN EC 81 MG TAB PO SCH (09:57)
[2019-12-17] MEDS: FUROSEMIDE 40 MG/4 ML INJ IV SCH ×2 (09:57→22:04)
[2019-12-17] MEDS: HEPARIN 5,000 UNIT/1 ML VIAL SUB-Q SCH ×2 (09:57→22:04)
[2019-12-17] MEDS: carvediloL 3.125 MG TAB PO SCH ×2 (09:57→22:04)
[2019-12-17] MEDS: LISINOPRIL 5 MG TAB PO SCH (10:03)
--- NOTE | 2019-12-17 10:05 | Progress Note ---
Assessment and Plan Assessment and plan: 34-year-old -[place] male who presents to the emergency department from home with a complaint of a 1 to 2-day history of shortness of breath, and a progressive buildup of fluid/edema. The patient has a past medical history that includes dilated nonischemic cardiomyopathy, congestive heart failure with an EF of 5 to 10%, LifeVest, hypertension and previous alcohol abuse. Patient follows with Dr. Guadarrama for cardiology. Patient says that he has been adhering to his home medications, including 40 mg of Lasix twice daily, and has been cautious about his diet and fluid intake. However, despite that, the patient has had increased swelling to the bilateral lower extremities and up into the abdomen. He began having the shortness of breath 2 days ago which is what he says brought him him to the ER. No recent travel or sick contacts at home. He denies any chest pain, fever, nausea, vomiting or diaphoresis. (1) Acute on chronic combined systolic and diastolic HFrEF (heart failure with reduced ejection fraction) Current Visit: Yes Status: Acute (2) Nonischemic cardiomyopathy Current Visit: Yes Status: Chronic (3) Sinus tachycardia Current Visit: Yes Status: Acute (4) Abdominal pain Current Visit: Yes Status: Acute Qualifiers: Abdominal location: generalized Qualified Code(s): R10.84 - Generalized abdominal pain (5) Hx of myocardial infarction Current Visit: Yes Status: Chronic (6) H/O alcohol abuse Current Visit: No Status: Resolved (7) Hyperbilirubenemia (8) cholelithiasis (9) chronic kidney disease stage III Current Visit: No Status: Resolved Plan 12/16: 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 Patient still with tachycardia markedly decompensated. Await ultrasound of the abdomen. GI input noted. Continue diruresis CHF protocol Dietary and fluid intake compliance discussed with the patient Monitor electrolytes Echo pending. Continue BB and RICHARD as ordered. dvt/gi PROPHY History Interval history: Patient seen and examined, still with shortness of breath, although some improvement but still with tachycardia Hospitalist Physical - Physical exam Narrative exam: VITAL SIGNS: Reviewed. GENERAL: The patient appears normally developed, patient's respiratory status has stabilized while in the department and is appropriate for outpatient work up. Exam and work up not consistent w/ impending respiratory failure or cardiovascular collapse. Vital signs as documented. HEAD: No signs of head trauma. EYES: Pupils are equal. Extraocular motions intact. EARS: Hearing grossly intact. MOUTH: Oropharynx is normal. NECK: No adenopathy, no JVD. CHEST: Chest with clear breath sounds bilaterally. No wheezes, rales, or rhonchi. CARDIAC: Tachycardia S1 and S2, without murmurs, gallops, or rubs. VASCULAR: Generalized anasarca with edema peripheral pulses normal and equal in all extremities. ABDOMEN: Tense but improved compared to yesterday soft, non tender. distended. No rebound or guarding, and no masses palpated. Bowel Sounds normal. MUSCULOSKELETAL: Good range of motion of all major joints. Extremities without clubbing, cyanosis. Bilateral pitting 2+ edema. NEUROLOGIC EXAM: Alert and oriented x 3 No focal sensory or strength deficits. Speech normal. Follows commands. PSYCHIATRIC: Mood normal. SKIN: detail exam as documented in skin assessment - Constitutional Vitals: Temp Pulse Resp BP Pulse Ox 97.8 F 98 H 20 110/80 99 12/17/19 07:03 12/17/19 08:57 12/17/19 07:03 12/17/19 07:03 12/17/19 07:03 General appearance: Present: no acute distress HEART Score - HEART Score Age: < 45 Risk factors: 1-2 risk factors Troponin: Troponin T < 0.010 ng/mL (0.00-0.029) 12/16/19 11:50 Troponin: < normal limit - Critical Actions Critical Actions: 0-3 pts:0.9-1.7%risk of adverse cardiac event.Candidate for discharge Results - Labs CBC & Chem 7: 12/16/19 01:20 12/16/19 01:20 Labs: Laboratory Last Values WBC 4.2 K/mm3 (4.5-11.0) L 12/16/19 01:20 RBC 5.83 M/mm3 (3.65-5.03) H 12/16/19 01:20 Hgb 13.1 gm/dl (11.8-15.2) 12/16/19 01:20 Hct 43.6 % (35.5-45.6) 12/16/19 01:20 MCV 75 fl (84-94) L 12/16/19 01:20 MCH 22 pg (28-32) L 12/16/19 01:20 MCHC 30 % (32-34) L 12/16/19 01:20 RDW 21.4 % (13.2-15.2) H 12/16/19 01:20 Plt Count 194 K/mm3 (140-440) 12/16/19 01:20 Lymph % (Auto) 34.7 % (13.4-35.0) 12/16/19 01:20 Toole % (Auto) 5.3 % (0.0-7.3) 12/16/19 01:20 Eos % (Auto) 5.2 % (0.0-4.3) H 12/16/19 01:20 Baso % (Auto) 2.9 % (0.0-1.8) H 12/16/19 01:20 Lymph # 1.5 K/mm3 (1.2-5.4) 12/16/19 01:20 Toole # 0.2 K/mm3 (0.0-0.8) 12/16/19 01:20 Eos # 0.2 K/mm3 (0.0-0.4) 12/16/19 01:20 Baso # 0.1 K/mm3 (0.0-0.1) 12/16/19 01:20 Seg Neutrophils % 51.9 % (40.0-70.0) 12/16/19 01:20 Seg Neutrophils # 2.2 K/mm3 (1.8-7.7) 12/16/19 01:20 Sodium 138 mmol/L (137-145) 12/16/19 01:20 Potassium 5.0 mmol/L (3.6-5.0) 12/16/19 01:20 Chloride 102.8 mmol/L (98-107) 12/16/19 01:20 Carbon Dioxide 18 mmol/L (22-30) L 12/16/19 01:20 Anion Gap 22 mmol/L 12/16/19 01:20 BUN 17 mg/dL (9-20) 12/16/19 01:20 Creatinine 1.1 mg/dL (0.8-1.3) 12/16/19 01:20 Estimated GFR > 60 ml/min 12/16/19 01:20 BUN/Creatinine Ratio 15 % 12/16/19 01:20 Glucose 113 mg/dL (75-100) H 12/16/19 01:20 Calcium 9.4 mg/dL (8.4-10.2) 12/16/19 01:20 Total Bilirubin 3.60 mg/dL (0.1-1.2) H 12/16/19 01:31 Direct Bilirubin 1.9 mg/dL (0-0.2) H 12/16/19 01:31 Indirect Bilirubin 1.7 mg/dL 12/16/19 01:31 AST 39 units/L (5-40) 12/16/19 01:31 ALT 20 units/L (7-56) 12/16/19 01:31 Alkaline Phosphatase 108 units/L (35-129) 12/16/19 01:31 Total Creatine Kinase 88 units/L (55-170) 12/16/19 11:50 CK-MB (CK-2) 1.3 ng/mL (0.0-4.0) 12/16/19 11:50 CK-MB (CK-2) Rel Index 1.4 (0-4) 12/16/19 11:50 Troponin T < 0.010 ng/mL (0.00-0.029) 12/16/19 11:50 NT-Pro-B Natriuret Pep 4618 pg/mL (0-450) H 12/16/19 01:20 Total Protein 7.7 g/dL (6.3-8.2) 12/16/19 01:31 Albumin 4.1 g/dL (3.9-5) 12/16/19 01:31 Albumin/Globulin Ratio 1.1 % 12/16/19 01:31 Ayala/IV: Voiding Method Toilet IV Catheter Type [Right Hand] INT / Saline Lock Active Medications - Current Medications Current Medications: Generic Name Dose Route Start Last Admin Trade Name Freq PRN Reason Stop Dose Admin Acetaminophen 650 mg 12/16/19 03:39 Tylenol PO Q4H PRN Fever >101 Albuterol 2 puff 12/16/19 12:00 Proair IH QID PRN Shortness Of Breath Aspirin 325 mg 12/16/19 10:00 12/16/19 10:26 Aspirin PO 325 mg QDAY CAMERON Administration Aspirin 81 mg 12/17/19 10:00 12/17/19 09:57 Halfprin Ec PO 81 mg QDAY CAMERON Administration Atorvastatin Calcium 20 mg 12/16/19 22:00 12/16/19 21:39 Lipitor PO 20 mg QHS CAMERON Administration Carvedilol 3.125 mg 12/16/19 22:00 12/17/19 09:57 Coreg PO 3.125 mg BID CAMERON Administration Furosemide 40 mg 12/16/19 22:00 12/17/19 09:57 Lasix IV 40 mg BID CAMERON Administration Heparin Sodium (Porcine) 5,000 unit 12/16/19 03:45 12/17/19 09:57 Heparin SUB-Q 5,000 unit Q12HR [facility] Administration Lisinopril 5 mg 12/17/19 10:00 12/17/19 10:03 Zestril PO 5 mg QDAY CAMERON Administration Metolazone 5 mg 12/16/19 17:30 12/16/19 19:27 Zaroxolyn PO 5 mg DAILY@1730 CAMERON Administration Nitroglycerin 0.5 inch 12/16/19 06:00 12/16/19 14:47 Nitro-Bid 2% TP Not Given BIDNTG [facility] Protocol
--- NOTE | 2019-12-17 12:13 | Ultrasound Report ---
Limited ultrasound of the abdomen INDICATION: Ascites FINDINGS: Limited study is performed to evaluate for free fluid. A moderate amount of ascites is identified. IMPRESSION: There is a moderate amount of ascites. Signer Name: Isak Gonzalez MD Signed: 12/17/2019 12:09 PM Workstation Name: [id number]
[2019-12-17] MEDS: NITROGLYCERIN 2% OINT 1 GM TP SCH ×2 (12:16→14:08)
[2019-12-17] MEDS: ASPIRIN 325 MG TAB PO SCH (12:17)
--- NOTE | 2019-12-17 16:17 | Progress Note ---
Assessment and Plan Echo 12/16/2019 reviewed - EF 10-15%; severe LV hypokinesis; LV diastolic filling pattern consistent w/pseudonormalization; LA/RA mod dilated; severely reduced RV systolic fxn; mild-mod MR. Plan for US-guided paracentesis in AM. Continue IV Lasix 40mg BID with strict I/Os. Closely monitor renal indices. Continue BB and RICHARD. Will re-address AICD candidacy as an outpatient. GI recs noted. Pt seen in conjunction with Dr. Puentes, who agrees with the assessment and plan of care. - Patient Problems (1) Acute on chronic HFrEF (heart failure with reduced ejection fraction) Current Visit: Yes Status: Acute (2) Nonischemic cardiomyopathy Current Visit: Yes Status: Chronic (3) Sinus tachycardia Current Visit: Yes Status: Acute (4) Abdominal pain Current Visit: Yes Status: Acute Qualifiers: Abdominal location: generalized Qualified Code(s): R10.84 - Generalized abdominal pain (5) Hx of myocardial infarction Current Visit: Yes Status: Chronic (6) H/O alcohol abuse Current Visit: No Status: Resolved (7) H/O chronic kidney disease Current Visit: No Status: Resolved Subjective Date of service: 12/17/19 Principal diagnosis: A/C HFrEF Interval history: Pt sitting up in chair comfortably upon exam. Denies SOB and orthopnea/PND. C/o persistent pain related to abdominal swelling. No additional cardiac complaints. -1400mL UOP/24 hrs Tele reviewed - ST 100s w/no acute events noted. Of note, pt has LifeVest at bedside; however, he has not been wearing it due to discomfort/fit issues secondary to abd distention. Objective Last Vital Signs Temp 97.8 F 12/17/19 07:03 Pulse 98 H 12/17/19 08:57 Resp 20 12/17/19 07:03 BP 110/80 12/17/19 07:03 Pulse Ox 99 12/17/19 07:03 - Physical Examination General: No Apparent Distress HEENT: Positive: EOMI, Normocephaly, Mucus Membranes Moist Neck: Positive: neck supple, trachea midline. Negative: JVD/HJR Cardiac: Positive: Reg Rate and Rhythm, S1/S2, Tachycardia. Negative: Audible Murmur Lungs: Positive: clear to auscultation (bilaterally) Neuro: Positive: Grossly Intact Abdomen: Positive: Active Bowel Sounds, Distended. Negative: Tender Skin: Negative: Rash, Wound Musculoskeletal: No Fluid Collection, No Pain, Normal Range of Motion Extremities: Present: upper extr. pulses, lower extr. pulses, +2 Edema (BLE) - Imaging and Cardiology EKG: report reviewed, image reviewed Echo: report reviewed (12/16/2019 - EF 10-15%; severe LV hypokinesis; LV diastolic filling pattern consistent w/pseudonormalization; LA/RA mod dilated; severely reduced RV systolic fxn; mild-mod MR), other (09/13/2019 - EF 5-10%; grade III diastolic dysfxn; RV mod dilated; mod RV hypokinesis; LA mod dilated; RA mod dilated; mod-severe TR; mild pHTN) Cardiac cath: report reviewed (05/15/2019 - normal coronary anatomy; dilated LV w/severe diffuse hypokinesis, EF 10%) - Telemetry EKG Rhythm: Sinus Tachycardia - EKG Sinus rhythms and dysrhythmias: sinus tachycardia Chamber hypertrophy or enlargement: left atrial enlargement Repolarization changes or abnormalities: Q-T interval prolongation Myocardial infarction: anterior MD (old age or i
[2019-12-17] MEDS: metOLazone 5 MG TAB PO SCH (17:49)
[2019-12-18] MEDS: NITROGLYCERIN 2% OINT 1 GM TP SCH ×2 (05:28→15:21)
--- NOTE | 2019-12-18 10:22 | Progress Note ---
Assessment and Plan Cont present cardiac management, including IV Lasix 40mg BID, coreg, lisinopril, zaroxolyn. Monitor renal indices. Pt is in posession of LifeVest. Will plan to re-address AICD candidacy as an outpatient. GI recs noted - for possible paracentesis. The patient has been seen in conjunction with Dr. Puentes who agrees with the assessment and plan of care. - Patient Problems (1) Acute on chronic HFrEF (heart failure with reduced ejection fraction) Current Visit: Yes Status: Acute (2) Nonischemic cardiomyopathy Current Visit: Yes Status: Chronic (3) Sinus tachycardia Current Visit: Yes Status: Acute (4) Ascites Current Visit: Yes Status: Acute (5) Hx of myocardial infarction Current Visit: Yes Status: Chronic (6) H/O alcohol abuse Current Visit: No Status: Resolved (7) H/O chronic kidney disease Current Visit: No Status: Resolved Subjective Date of service: 12/18/19 Principal diagnosis: A/C HFrEF Interval history: pt resting in bed, states he is feeling better, abdominal swelling continues to improve. tele reviewed - in SR HR 80s - 90s overnight, 2sec pause noted ~7:30AM this morning while pt was asleep, pt asymptomatic. Objective Last Vital Signs Temp 97.5 F L 12/18/19 07:31 Pulse 94 H 12/18/19 08:00 Resp 17 12/18/19 07:31 BP 114/81 12/18/19 07:31 Pulse Ox 99 12/18/19 07:31 - Physical Examination General: No Apparent Distress HEENT: Positive: EOMI, Normocephaly, Mucus Membranes Moist Neck: Positive: neck supple, trachea midline. Negative: JVD/HJR Cardiac: Positive: Reg Rate and Rhythm, S1/S2 Lungs: Positive: Decreased Breath Sounds Neuro: Positive: Grossly Intact Abdomen: Positive: Active Bowel Sounds, Distended. Negative: Tender Skin: Negative: Rash, Wound Musculoskeletal: No Fluid Collection, No Pain, Normal Range of Motion Extremities: Present: upper extr. pulses, lower extr. pulses, +2 Edema (BLE) - Imaging and Cardiology EKG: report reviewed, image reviewed Echo: report reviewed (12/16/2019 - EF 10-15%; severe LV hypokinesis; LV diastolic filling pattern consistent w/pseudonormalization; LA/RA mod dilated; severely reduced RV systolic fxn; mild-mod MR), other (09/13/2019 - EF 5-10%; grade III diastolic dysfxn; RV mod dilated; mod RV hypokinesis; LA mod dilated; RA mod dilated; mod-severe TR; mild pHTN) Cardiac cath: report reviewed (05/15/2019 - normal coronary anatomy; dilated LV w/severe diffuse hypokinesis, EF 10%) - Telemetry EKG Rhythm: Sinus Rhythm - EKG Sinus rhythms and dysrhythmias: sinus tachycardia Chamber hypertrophy or enlargement: left atrial enlargement Repolarization changes or abnormalities: Q-T interval prolongation Myocardial infarction: anterior [place] (old age or i
[2019-12-18] MEDS: HEPARIN 5,000 UNIT/1 ML VIAL SUB-Q SCH ×2 (10:26→22:27)
[2019-12-18] MEDS: ASPIRIN EC 81 MG TAB PO SCH (10:26)
[2019-12-18] MEDS: ASPIRIN 325 MG TAB PO SCH (10:30)
[2019-12-18 10:59] LABS: INR 1.34 (0.87-1.13)
[2019-12-18] MEDS ORDERED: ALBUTEROL 2.5 MG/3 ML NEBU IH PRN (12:00)
[2019-12-18] MEDS: FUROSEMIDE 40 MG/4 ML INJ IV SCH ×2 (15:21→22:03)
[2019-12-18] MEDS: LISINOPRIL 5 MG TAB PO SCH (15:21)
[2019-12-18] MEDS: carvediloL 3.125 MG TAB PO SCH ×2 (15:22→22:04)
[2019-12-18] MEDS ORDERED: MORPHINE 4 MG/1 ML INJ IV ONE (15:35)
--- NOTE | 2019-12-18 16:05 | Ultrasound Report ---
ULTRASOUND-GUIDED PARACENTESIS HISTORY: ascites. PROCEDURE: The risks (including but not limited to bleeding, infection, and bowel injury) and benefi ts were explained to the patient and informed consent was obtained. A time out procedure was perform ed. Ultrasound was used to evaluate the abdomen and locate the largest ascites fluid pocket. Once the sk in was marked, the procedure site was prepped and draped in the usual sterile fashion and lidocaine w as used for local anesthesia. A skin kasandra was made and a 5 Kazakh centesis catheter was placed. The patient was monitored closely throughout the procedure, and a total of 4100 mL of clear yellow fluid was aspirated. Samples were sent to the lab for further evaluation per the primary clinicians order s. The patient tolerated the procedure well with no complications. IMPRESSION: Successful ultrasound-guided paracentesis as described. Signer Name: Fernando Kenney Jr, MD Signed: 12/18/2019 4:00 PM Workstation Name: [id number]
[2019-12-18 16:29] LABS: Total Cells Counted 100 /mm3
[2019-12-18] MEDS: metOLazone 5 MG TAB PO SCH (17:45)
--- NOTE | 2019-12-18 19:17 | Progress Note ---
Assessment and Plan Assessment and plan: 34-year-old -[place] male who presents to the emergency department from home with a complaint of a 1 to 2-day history of shortness of breath, and a progressive buildup of fluid/edema. The patient has a past medical history that includes dilated nonischemic cardiomyopathy, congestive heart failure with an EF of 5 to 10%, LifeVest, hypertension and previous alcohol abuse. Patient follows with Dr. Guadarrama for cardiology. Patient says that he has been adhering to his home medications, including 40 mg of Lasix twice daily, and has been cautious about his diet and fluid intake. However, despite that, the patient has had increased swelling to the bilateral lower extremities and up into the abdomen. He began having the shortness of breath 2 days ago which is what he says brought him him to the ER. No recent travel or sick contacts at home. He denies any chest pain, fever, nausea, vomiting or diaphoresis. (1) Acute on chronic combined systolic and diastolic HFrEF (heart failure with reduced ejection fraction) Current Visit: Yes Status: Acute (2) Nonischemic cardiomyopathy Current Visit: Yes Status: Chronic (3) Sinus tachycardia Current Visit: Yes Status: Acute (4) Abdominal pain Current Visit: Yes Status: Acute Qualifiers: Abdominal location: generalized Qualified Code(s): R10.84 - Generalized abdominal pain (5) Hx of myocardial infarction Current Visit: Yes Status: Chronic (6) H/O alcohol abuse Current Visit: No Status: Resolved (7) Hyperbilirubenemia (8) cholestatsis secondary to Heart failure. (9) chronic kidney disease stage III Current Visit: No Status: Resolved Plan 12/16: Discussed with building coordinator we 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 Patient still with tachycardia markedly decompensated. 12/17; Continues to improve, will obtain diagnostic and therapeutic Paracentesis anticipate discharge in 24-48 hrs Await ultrasound of the abdomen. GI input noted. Continue diruresis CHF protocol Dietary and fluid intake compliance discussed with the patient Monitor electrolytes Echo pending. Continue BB and RICHARD as ordered. DVT/GI PROPHY History Interval history: Patient seen and examined, still with shortness of breath, although some improvement but still with tachycardia Hospitalist Physical - Physical exam Narrative exam: VITAL SIGNS: Reviewed. GENERAL: The patient appears normally developed, patient's respiratory status has stabilized while in the department and is appropriate for outpatient work up. Exam and work up not consistent w/ impending respiratory failure or cardiovascular collapse. Vital signs as documented. HEAD: No signs of head trauma. EYES: Pupils are equal. Extraocular motions intact. EARS: Hearing grossly intact. MOUTH: Oropharynx is normal. NECK: No adenopathy, no JVD. CHEST: Chest with clear breath sounds bilaterally. No wheezes, rales, or rhonchi. CARDIAC: Tachycardia S1 and S2, without murmurs, gallops, or rubs. VASCULAR: Generalized anasarca with edema peripheral pulses normal and equal in all extremities. ABDOMEN: soft and improved compared to yesterday soft, non tender. distended. No rebound or guarding, and no masses palpated. Bowel Sounds normal. MUSCULOSKELETAL: Good range of motion of all major joints. Extremities without clubbing, cyanosis. Bilateral pitting 2+ edema. NEUROLOGIC EXAM: Alert and oriented x 3 No focal sensory or strength deficits. Speech normal. Follows commands. PSYCHIATRIC: Mood normal. SKIN: detail exam as documented in skin assessment - Constitutional Vitals: Temp Pulse Resp BP Pulse Ox 98.0 F 102 H 17 108/65 99 12/18/19 16:39 12/18/19 16:39 12/18/19 16:39 12/18/19 16:39 12/18/19 16:39 General appearance: Present: no acute distress HEART Score - HEART Score Age: < 45 Risk factors: 1-2 risk factors Troponin: Troponin T < 0.010 ng/mL (0.00-0.029) 12/16/19 11:50 Troponin: < normal limit - Critical Actions Critical Actions: 0-3 pts:0.9-1.7%risk of adverse cardiac event.Candidate for discharge Results - Labs CBC & Chem 7: 12/16/19 01:20 12/16/19 01:20 Labs: Laboratory Last Values WBC 4.2 K/mm3 (4.5-11.0) L 12/16/19 01:20 RBC 5.83 M/mm3 (3.65-5.03) H 12/16/19 01:20 Hgb 13.1 gm/dl (11.8-15.2) 12/16/19 01:20 Hct 43.6 % (35.5-45.6) 12/16/19 01:20 MCV 75 fl (84-94) L 12/16/19 01:20 MCH 22 pg (28-32) L 12/16/19 01:20 MCHC 30 % (32-34) L 12/16/19 01:20 RDW 21.4 % (13.2-15.2) H 12/16/19 01:20 Plt Count 194 K/mm3 (140-440) 12/16/19 01:20 Lymph % (Auto) 34.7 % (13.4-35.0) 12/16/19 01:20 Baker % (Auto) 5.3 % (0.0-7.3) 12/16/19 01:20 Eos % (Auto) 5.2 % (0.0-4.3) H 12/16/19 01:20 Baso % (Auto) 2.9 % (0.0-1.8) H 12/16/19 01:20 Lymph # 1.5 K/mm3 (1.2-5.4) 12/16/19 01:20 Baker # 0.2 K/mm3 (0.0-0.8) 12/16/19 01:20 Eos # 0.2 K/mm3 (0.0-0.4) 12/16/19 01:20 Baso # 0.1 K/mm3 (0.0-0.1) 12/16/19 01:20 Seg Neutrophils % 51.9 % (40.0-70.0) 12/16/19 01:20 Seg Neutrophils # 2.2 K/mm3 (1.8-7.7) 12/16/19 01:20 PT 16.7 Sec. (12.2-14.9) H 12/18/19 09:21 INR 1.34 (0.87-1.13) H 12/18/19 09:21 Sodium 138 mmol/L (137-145) 12/16/19 01:20 Potassium 5.0 mmol/L (3.6-5.0) 12/16/19 01:20 Chloride 102.8 mmol/L (98-107) 12/16/19 01:20 Carbon Dioxide 18 mmol/L (22-30) L 12/16/19 01:20 Anion Gap 22 mmol/L 12/16/19 01:20 BUN 17 mg/dL (9-20) 12/16/19 01:20 Creatinine 1.1 mg/dL (0.8-1.3) 12/16/19 01:20 Estimated GFR > 60 ml/min 12/16/19 01:20 BUN/Creatinine Ratio 15 % 12/16/19 01:20 Glucose 113 mg/dL (75-100) H 12/16/19 01:20 Calcium 9.4 mg/dL (8.4-10.2) 12/16/19 01:20 Total Bilirubin 3.60 mg/dL (0.1-1.2) H 12/16/19 01:31 Direct Bilirubin 1.9 mg/dL (0-0.2) H 12/16/19 01:31 Indirect Bilirubin 1.7 mg/dL 12/16/19 01:31 AST 39 units/L (5-40) 12/16/19 01:31 ALT 20 units/L (7-56) 12/16/19 01:31 Alkaline Phosphatase 108 units/L (35-129) 12/16/19 01:31 Total Creatine Kinase 88 units/L (55-170) 12/16/19 11:50 CK-MB (CK-2) 1.3 ng/mL (0.0-4.0) 12/16/19 11:50 CK-MB (CK-2) Rel Index 1.4 (0-4) 12/16/19 11:50 Troponin T < 0.010 ng/mL (0.00-0.029) 12/16/19 11:50 NT-Pro-B Natriuret Pep 4618 pg/mL (0-450) H 12/16/19 01:20 Total Protein 7.7 g/dL (6.3-8.2) 12/16/19 01:31 Albumin 4.1 g/dL (3.9-5) 12/16/19 01:31 Albumin/Globulin Ratio 1.1 % 12/16/19 01:31 Fluid Type Ascitic 12/18/19 14:18 Fluid Color Yellow 12/18/19 14:18 Fluid Appearance Hazy 12/18/19 14:18 Fluid WBC 143 /mm3 12/18/19 14:18 Fluid RBC 994 /mm3 12/18/19 14:18 Fluid Seg Neutrophils 8.0 % 12/18/19 14:18 Fluid Lymphocytes 35.0 % 12/18/19 14:18 Fluid Reactive Lymphs 0 % 12/18/19 14:18 Fluid Monocytes 57.0 % 12/18/19 14:18 Fluid Eosinophils 0 % 12/18/19 14:18 Fluid Basophils 0 % 12/18/19 14:18 - Diagnostic Impressions Diagnostic Impressions: Echocardiogram 12/16/19 06:00 Transthoracic Echocardiogram Indication: chf exacerbatiuon BP: 106/79 HR: 108 Conclusions *The left ventricular chamber size is mildly dilated. *Severe global hypokinesis of the left ventricle is observed. *The estimated ejection fraction is 10-15%. *The left ventricular diastolic filling pattern is consistent with pseudonormalization. *The left atrium is moderately dilated. *The right ventricular global systolic function is severely reduced. *The right atrium is moderately dilated. *There is mild to moderate mitral regurgitation. *The right ventricular systolic pressure is calculated at 46 mmHg. *Spontaneous contrast noted in LV,RA. Findings Left Ventricle: The left ventricular chamber size is mildly dilated. Severe global hypokinesis of the left ventricle is observed. Global left ventricular systolic function is severely decreased. The estimated ejection fraction is 10-15%. Abnormal left ventricular diastolic function is observed. The left ventricular diastolic filling pattern is consistent with pseudonormalization. Left Atrium: The left atrium is moderately dilated. Right Ventricle: The right ventricle is moderate to severely dilated. The right ventricular global systolic function is severely reduced. Right Atrium: The right atrium is moderately dilated. The interatrial septum appears normal. Aortic Valve: The aortic valve structure is normal. There is mild aortic regurgitation. There is no evidence of aortic stenosis. Mitral Valve: The mitral valve leaflets appear normal. There is mild to moderate mitral regurgitation. There is no evidence of mitral stenosis. Tricuspid Valve: The tricuspid valve leaflets are normal. There is mild tricuspid regurgitation. The right ventricular systolic pressure is calculated at 46 mmHg. There is evidence of mild pulmonary hypertension. There is no tricuspid stenosis. Pulmonic Valve: The pulmonic valve appears normal. There is mild pulmonic regurgitation. There is no pulmonic stenosis. Pericardium: There is a minimial pericardial effusion. Aorta: There is no dilatation of the ascending aorta. There is no dilatation of the aortic arch. There is no dilatation of the descending thoracic aorta. There is no dilatation of the aortic root. Venous: The inferior vena cava appears abnormal. The inferior vena cava is dilated. There is no change in the dimension of the inferior vena cava with respiration consistent with markedly increased right atrial pressure. Measurements Chambers 2D Name Value Normal Range IVSd (2D) 0.93 cm (0.6 - 1.1) LVPWd (2D) 0.96 cm (0.6 - 1.1) LVIDd (2D) 5.69 cm (3.7 - 5.6) LVIDs (2D) 5.24 cm (2 - 3.8) LV FS (2D) 7.91 % - EF Teichholz (2D) 17.3 % - Ao root diameter (2D) 2.98 cm (2 - 3.7) Volumes/Mass Name Value Normal Range LA ESV SP 4CH (A/L) 87.43 ml - LA ESV SP 2CH (A/L) 121.2 ml - LA ESV BP (A/L) 110.43 ml - LA ESV SP 4CH (MOD) 79.03 ml - LA ESV SP 2CH (MOD) 109.77 ml - LA ESV BP (MOD) 99.45 ml - LA ESV BP (MOD) index 45.2 ml/m2 - LV EDV SP 4CH (MOD) 146.86 ml - LV ESV SP 4CH (MOD) 128.71 ml - EF SP 4CH (MOD) 12.36 % - LV EDV SP 2CH (MOD) 178.92 ml - LV ESV SP 2CH (MOD) 146.51 ml - EF SP 2CH (MOD) 18.11 % - LV EDV BP 165.55 ml - LV ESV BP 139.54 ml - BP EF (MOD) 15.71 % - Aortic Valve Name Value Normal Range AV Vmax 0.69 m/sec - AV VTI 11.3 cm - AV peak gradient 1.9 mmHg - AV mean gradient 1.24 mmHg - LVOT diameter 2.12 cm - LVOT Vmax 0.53 m/sec - LVOT VTI 7.46 cm - LVOT peak gradient 1.1 mmHg - LVOT mean gradient 0.61 mmHg - SV LVOT 26.43 ml - NUZHAT (continuity Vmax) 2.7 cm2 - NUZHAT (continuity VTI) 2.34 cm2 - AR PHT 341.5 msec - AR peak gradient 10.28 mmHg - Tricuspid Valve Name Value Normal Range TR Vmax 2.78 m/sec - TR peak gradient 30.88 mmHg - RAP 15 mmHg - RVSP 46 mmHg - Pulmonic Valve/Qp:Qs Name Value Normal Range PV Vmax 0.52 m/sec - PV peak gradient 1.1 mmHg - MD end-diastolic Vmax 1.52 m/sec - PV acceleration time 64.7 msec - Ayala/IV: Voiding Method Toilet IV Catheter Type [Right Hand] INT / Saline Lock Active Medications - Current Medications Current Medications: Generic Name Dose Route Start Last Admin Trade Name Freq PRN Reason Stop Dose Admin Acetaminophen 650 mg 12/16/19 03:39 12/18/19 15:21 Tylenol PO 650 mg Q4H PRN Administration Fever >101 Albuterol 2.5 mg 12/18/19 12:00 Proventil IH Q4HRT PRN Shortness Of Breath Aspirin 81 mg 12/17/19 10:00 12/18/19 10:26 Halfprin Ec PO Not Given QDAY [facility] Atorvastatin Calcium 20 mg 12/16/19 22:00 12/17/19 22:04 Lipitor PO 20 mg QHS CAMERON Administration Carvedilol 3.125 mg 12/16/19 22:00 12/18/19 15:22 Coreg PO 3.125 mg BID CAMERON Administration Furosemide 40 mg 12/16/19 22:00 12/18/19 15:21 Lasix IV 40 mg BID CAMERON Administration Heparin Sodium (Porcine) 5,000 unit 12/16/19 03:45 12/18/19 10:26 Heparin SUB-Q Not Given Q12HR CAMERON Lisinopril 5 mg 12/17/19 10:00 12/18/19 15:21 Zestril PO 5 mg QDAY CAMERON Administration Metolazone 5 mg 12/16/19 17:30 12/18/19 17:45 Zaroxolyn PO 5 mg DAILY@1730 [facility] Administration Nitroglycerin 0.5 inch 12/16/19 06:00 12/18/19 15:21 Nitro-Bid 2% TP 0.5 inch BIDNTG CAMERON Administration Protocol
[2019-12-19 04:51] LABS: BUN/Creatinine Ratio 17; Blood Urea Nitrogen 20 mg/dL (9-20); Calcium 9.2 mg/dL (8.4-10.2); Hemolysis Index 2
[2019-12-19] MEDS: NITROGLYCERIN 2% OINT 1 GM TP SCH ×2 (06:43→14:37)
[2019-12-19] MEDS: carvediloL 3.125 MG TAB PO SCH (09:05)
[2019-12-19] MEDS: ASPIRIN EC 81 MG TAB PO SCH (09:05)
[2019-12-19] MEDS: FUROSEMIDE 40 MG/4 ML INJ IV SCH (09:06)
[2019-12-19] MEDS: HEPARIN 5,000 UNIT/1 ML VIAL SUB-Q SCH (09:06)
[2019-12-19] MEDS: LISINOPRIL 5 MG TAB PO SCH (09:06)
--- NOTE | 2019-12-19 12:17 | Progress Note ---
Assessment and Plan Currently stable cardiac status. S/p paracentesis yesterday with 4+L clear yellow fluid removed. Pt may discharge from cardiology standpoint. At discharge, recommend conversion of lasix to PO bumex 1mg BID, d/c zaroxolyn. Cont coreg and lisinopril. Cont LifeVest and will plan to re-address AICD candidacy as an outpatient. Recommend pt follow up in our office with Dr. Guadarrama within 3-5 days of discharge ([phone]). Pt verbalizes understanding. The patient has been seen in conjunction with Dr. Puentes who agrees with the assessment and plan of care. - Patient Problems (1) Acute on chronic HFrEF (heart failure with reduced ejection fraction) Current Visit: Yes Status: Acute (2) Nonischemic cardiomyopathy Current Visit: Yes Status: Chronic (3) Sinus tachycardia Current Visit: Yes Status: Acute (4) Ascites Current Visit: Yes Status: Acute (5) Hx of myocardial infarction Current Visit: Yes Status: Chronic (6) H/O alcohol abuse Current Visit: No Status: Resolved (7) H/O chronic kidney disease Current Visit: No Status: Resolved Subjective Date of service: 12/19/19 Principal diagnosis: A/C HFrEF Interval history: pt ambulating around room, states he is feeling much better, s/p paracentesis yesterday with 4+L removed. tele reviewed - in SR/ST HR 100s. Objective Last Vital Signs Temp 98.2 F 12/19/19 08:27 Pulse 106 H 12/19/19 09:06 Resp 18 12/19/19 08:27 BP 104/70 12/19/19 09:06 Pulse Ox 90 12/19/19 08:27 - Physical Examination General: No Apparent Distress HEENT: Positive: EOMI, Normocephaly, Mucus Membranes Moist Neck: Positive: neck supple, trachea midline. Negative: JVD/HJR Cardiac: Positive: Regular Rhythm, S1/S2 Lungs: Positive: Decreased Breath Sounds Neuro: Positive: Grossly Intact Abdomen: Positive: Active Bowel Sounds. Negative: Tender Skin: Negative: Rash, Wound Musculoskeletal: No Fluid Collection, No Pain, Normal Range of Motion Extremities: Present: upper extr. pulses, lower extr. pulses, edema (trace BLE) - Labs and Meds Comprehensive Metabolic Panel 08/04/20 Range/Units 03:47 Sodium 135 L (137-145) mmol/L Potassium 3.6 D (3.6-5.0) mmol/L Chloride 95.2 L (98-107) mmol/L Carbon Dioxide 26 D (22-30) mmol/L BUN 20 (9-20) mg/dL Creatinine 1.2 (0.8-1.3) mg/dL Glucose 91 (75-100) mg/dL Calcium 9.2 (8.4-10.2) mg/dL - Imaging and Cardiology EKG: report reviewed, image reviewed Echo: report reviewed (12/16/2019 - EF 10-15%; severe LV hypokinesis; LV diastolic filling pattern consistent w/pseudonormalization; LA/RA mod dilated; severely reduced RV systolic fxn; mild-mod MR), other (09/13/2019 - EF 5-10%; grade III diastolic dysfxn; RV mod dilated; mod RV hypokinesis; LA mod dilated; RA mod dilated; mod-severe TR; mild pHTN) Cardiac cath: report reviewed (05/15/2019 - normal coronary anatomy; dilated LV w/severe diffuse hypokinesis, EF 10%) - Telemetry EKG Rhythm: Sinus Rhythm - EKG Sinus rhythms and dysrhythmias: sinus tachycardia Chamber hypertrophy or enlargement: left atrial enlargement Repolarization changes or abnormalities: Q-T interval prolongation Myocardial infarction: anterior [place] (old age or i
[2019-12-19 14:36] VITALS: BP 103/68
--- NOTE | 2019-12-19 15:46 | Discharge Summary ---
Providers - Providers Date of Admission: 12/16/19 03:34 Date of discharge: 12/19/19 Attending physician: SUKHDEV ZIEGLER 12/16/19 02:33 Consult to Cardiology [CONS] Routine Consulting Provider: GHAZAL DORSEY Reason For Exam: CHF 12/16/19 11:02 Consult to Physician [CONS] Routine Comment: Consulting Provider: DALI WOOD Physician Instructions: Reason For Exam: hyperbilirubenmia Primary care physician: [employer] Hospitalization Condition: Serious Pertinent studies: CXR abdomen US Procedures: Paracentesis Hospital course: 34-year-old -[place] male who presents to the emergency department from home with a complaint of a 1 to 2-day history of shortness of breath, and a progressive buildup of fluid/edema. The patient has a past medical history that includes dilated nonischemic cardiomyopathy, congestive heart failure with an EF of 5 to 10%, LifeVest, hypertension and previous alcohol abuse. Patient was admitted to telemetry floor with scheduled iv diuretics. Monitored with serial CE, EKG. Cardiology consulted. Provided cardiac diet, daily weights, monitored in's and O's. Patient noted to have significant ascites, status post paracentesis with drainage of 4100 mL peritoneal fluid. patients symptom improved with medical management. Cardiology cleared the patient for discharge. patient was then discharged home in stable condition with outpt f/u. Discharge diagnosis: (1) Acute on chronic combined systolic and diastolic HFrEF (heart failure with reduced ejection fraction) Current Visit: Yes Status: Acute (2) Nonischemic cardiomyopathy Current Visit: Yes Status: Chronic (3) Sinus tachycardia Current Visit: Yes Status: Acute (4) Abdominal pain Current Visit: Yes Status: Acute Qualifiers: Abdominal location: generalized Qualified Code(s): R10.84 - Generalized abdominal pain (5) Hx of myocardial infarction Current Visit: Yes Status: Chronic (6) H/O alcohol abuse Current Visit: No Status: Resolved (7) Hyperbilirubenemia (8) cholestatsis secondary to Heart failure. (9) chronic kidney disease stage III Current Visit: No Status: Resolved Physical exam: VITAL SIGNS: Reviewed. GENERAL: The patient appears normally developed, patient's respiratory status has stabilized while in the department and is appropriate for outpatient work up. Exam and work up not consistent w/ impending respiratory failure or cardiovascular collapse. Vital signs as documented. HEAD: No signs of head trauma. EYES: Pupils are equal. Extraocular motions intact. EARS: Hearing grossly intact. MOUTH: Oropharynx is normal. NECK: No adenopathy, no JVD. CHEST: Chest with clear breath sounds bilaterally. No wheezes, rales, or rhonchi. CARDIAC: Tachycardia S1 and S2, without murmurs, gallops, or rubs. VASCULAR: Generalized anasarca with edema peripheral pulses normal and equal in all extremities. ABDOMEN: soft and improved compared to yesterday soft, non tender. distended. No rebound or guarding, and no masses palpated. Bowel Sounds normal. MUSCULOSKELETAL: Good range of motion of all major joints. Extremities without clubbing, cyanosis. Bilateral pitting 2+ edema. NEUROLOGIC EXAM: Alert and oriented x 3 No focal sensory or strength deficits. Speech normal. Follows commands. PSYCHIATRIC: Mood normal. SKIN: detail exam as documented in skin assessment Disposition: DC-01 TO HOME OR SELFCARE Time spent for discharge: 34 minutes Core Measure Documentation - Palliative Care Palliative Care/ Comfort Measures: Not Applicable - Core Measures Any of the following diagnoses?: heart failure - Heart Failure Discharge Requirements RICHARD/ARB for LVSD if EF <40%: Yes Beta francisco at discharge: Yes Exam - Constitutional Vitals: Temp Pulse Resp BP Pulse Ox 98.2 F 100 H 18 103/68 96 12/19/19 08:27 12/19/19 14:37 12/19/19 13:00 12/19/19 14:37 12/19/19 13:00 Plan Activity: advance as tolerated Weight Bearing Status: Non-Weight Bearing Diet: low fat, low salt Special Instructions: restrict fluid intake to (1L daily), record daily weights Follow up with: PRIMARY CARE, [Primary Care Provider] - 3-5 Days Prescriptions: Bumetanide [Bumex 1 mg tab] 1 mg PO 0600,1800 #60 tablet
[2019-12-19] MEDS ORDERED: BUMETANIDE 1 MG TAB PO SCH (18:00)
== END 2019-12-19 17:50 | disposition home or self-care (01) | DRG 291 ==
LOC: ED 00:58 → SUATTDRO 00:58 → ED 01:50 → 4A 03:34
PROVIDERS: ADMIT Internal Medicine; ATTEND Internal Medicine
PROC: 0W9G3ZX Drainage of Peritoneal Cavity, Percutaneous Approach, Diagnostic (ICD-10-PCS; principal; 2019-12-18)
DX: I13.0 Hypertensive heart and chronic kidney disease with heart failure and stage 1 through stage 4 chronic kidney disease, or unspecified chronic kidney disease (principal); I50.43 Acute on chronic combined systolic (congestive) and diastolic (congestive) heart failure; I42.8 Other cardiomyopathies; E80.6 Other disorders of bilirubin metabolism; N18.3 Chronic kidney disease, stage 3 (moderate); I25.10 Atherosclerotic heart disease of native coronary artery without angina pectoris; E78.5 Hyperlipidemia, unspecified; F10.10 Alcohol abuse, uncomplicated; R18.8 Other ascites; I42.9 Cardiomyopathy, unspecified; I95.9 Hypotension, unspecified; Z87.01 Personal history of pneumonia (recurrent); Z87.891 Personal history of nicotine dependence; Z79.899 Other long term (current) drug therapy; Z79.82 Long term (current) use of aspirin; I25.2 Old myocardial infarction
CPT/HCPCS: 36415; 49083; 71045; 76705; 80048; 80076; 82040; 82550; 82553; 83605; 83880; 84160; 84478; 84484; 85025; 85610; 88112; 88305; 88341; 88342; 89051; 93005; 93306; G0378; A9270-GY; J1644; J1940; J2270

== ENCOUNTER 2020-01-13 14:40 | Emergency (ER) | payer MEDICAID ==
[2020-01-13] MEDS ORDERED: ASPIRIN 325 MG TAB PO ONE (14:58)
[2020-01-13 15:29] LABS: Basophils # (Auto) 0.1 K/mm3 (0.0-0.1); Eosinophils # (Auto) 0.2 K/mm3 (0.0-0.4); Eosinophils % (Auto) 5.8 % (0.0-4.3); Hematocrit 39.6 % (35.5-45.6); Hemoglobin 12.4 gm/dl (11.8-15.2); Lymphocytes # (Auto) 1.2 K/mm3 (1.2-5.4); Lymphocytes % (Auto) 30.6 % (13.4-35.0); Mean Corpuscular HGB Conc 31 % (32-34); Mean Corpuscular Volume 72 fl (84-94); Monocytes # (Auto) 0.3 K/mm3 (0.0-0.8); Monocytes % (Auto) 9.1 % (0.0-7.3); Platelet Count 234 K/mm3 (140-440); Red Blood Count 5.53 M/mm3 (3.65-5.03); Red Cell Distribution Width 19.8 % (13.2-15.2)
--- NOTE | 2020-01-13 15:41 | XRay Report ---
CHEST 1 VIEW 01/13/2020 3:31 PM INDICATION / CLINICAL INFORMATION: Chest Pain. COMPARISON: Chest x-ray 12/16/2019 FINDINGS: SUPPORT DEVICES: None. HEART / MEDIASTINUM: Cardiac silhouette remains moderately enlarged LUNGS / PLEURA: No significant pulmonary or pleural abnormality. No pneumothorax. ADDITIONAL FINDINGS: No significant additional findings. IMPRESSION: 1. Stable cardiomegaly without CHF Signer Name: Daron Olson MD Signed: 01/13/2020 3:37 PM Workstation Name: [id number]
[2020-01-13 16:15] LABS: BUN/Creatinine Ratio 19; Blood Urea Nitrogen 21 mg/dL (9-20); Calcium 9.7 mg/dL (8.4-10.2); Hemolysis Index 1
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
[2020-01-13] MEDS ORDERED: ALPRAZolam 0.5 MG TAB PO ONE (19:44)
[2020-01-13 22:34] VITALS: BP 119/71
== END 2020-01-13 22:30 | disposition home or self-care (01) ==
LOC: ED 14:40
DX: I42.8 Other cardiomyopathies (principal); Z00.00 Encounter for general adult medical examination without abnormal findings; I50.9 Heart failure, unspecified; I11.0 Hypertensive heart disease with heart failure; I25.2 Old myocardial infarction; Z79.899 Other long term (current) drug therapy
CPT/HCPCS: 36415; 71045; 80048; 82550; 83735; 83880; 84484; 85025; 93005

== ENCOUNTER 2020-01-23 13:14 | Emergency (ER) | payer MEDICAID ==
[2020-01-23] MEDS ORDERED: ASPIRIN 325 MG TAB PO ONE (13:26)
[2020-01-23 14:23] LABS: Basophils % (Auto) 0.3 % (0.0-1.8); Eosinophils # (Auto) 0.2 K/mm3 (0.0-0.4); Eosinophils % (Auto) 5.8 % (0.0-4.3); Hematocrit 39.4 % (35.5-45.6); Hemoglobin 12.5 gm/dl (11.8-15.2); Lymphocytes # (Auto) 1.2 K/mm3 (1.2-5.4); Lymphocytes % (Auto) 37.6 % (13.4-35.0); Mean Corpuscular HGB Conc 32 % (32-34); Mean Corpuscular Volume 73 fl (84-94); Monocytes # (Auto) 0.2 K/mm3 (0.0-0.8); Monocytes % (Auto) 7.9 % (0.0-7.3); Platelet Count 200 K/mm3 (140-440); Red Blood Count 5.43 M/mm3 (3.65-5.03); Red Cell Distribution Width 19.7 % (13.2-15.2)
[2020-01-23] MEDS ORDERED: SODIUM CHLORIDE 0.9% 500 ML 500 ML IV ONE (14:24)
[2020-01-23] MEDS ORDERED: MORPHINE 4 MG/1 ML INJ IV ONE (14:24)
[2020-01-23] MEDS ORDERED: ONDANSETRON 4 MG/2 ML INJ IV ONE (14:24)
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
[2020-01-23 14:33] LABS: INR 1.43 (0.87-1.13)
[2020-01-23 14:34] LABS: Partial Thromboplastin Time 33.4 Sec. (24.2-36.6)
[2020-01-23 14:42] LABS: Bilirubin,Direct 1.5 mg/dL (0-0.2)
[2020-01-23 14:45] LABS: BUN/Creatinine Ratio 15; Blood Urea Nitrogen 18 mg/dL (9-20); Calcium 9.4 mg/dL (8.4-10.2); Hemolysis Index 5
--- NOTE | 2020-01-23 14:53 | XRay Report ---
CHEST 1 VIEW INDICATION / CLINICAL INFORMATION: chest pain. FINDINGS: SUPPORT DEVICES: None. HEART / MEDIASTINUM: Mild cardiomegaly. LUNGS / PLEURA: No significant pulmonary or pleural abnormality. No pneumothorax. ADDITIONAL FINDINGS: No significant additional findings. IMPRESSION: Mild cardiomegaly. No change from 01/13/2020. Signer Name: Chano Wharton MD Signed: 01/23/2020 2:49 PM Workstation Name: [id number]
--- NOTE | 2020-01-23 17:35 | Cat Scan Report ---
CT abdomen pelvis w con INDICATION / CLINICAL INFORMATION: abdominal pain. TECHNIQUE: Routine CT of the abdomen and pelvis with IV contrast All CT scans at this location are performed usi ng CT dose reduction for ALARA by means of automated exposure control. The exam is limited secondary to respiratory motion COMPARISON: None available. FINDINGS: Abdomen and pelvis: Large ascites identified throughout the abdomen and pelvis. The liver is enlarged and diffusely hypodense. The spleen is normal in size. The pancreas and adrenal glands and kidneys a re unremarkable. There is mild to moderate diffuse anasarca. The abdominal aorta is nondilated. No tami wel obstruction is identified. Urinary bladder is partially fluid distended. The heart is enlarged. T he lower lungs are grossly clear. Review of bone windows demonstrates no significant degenerative tu nge. IMPRESSION: 1. Hepatomegaly with large volume ascites and moderately developed anasarca. No bowel obstruction. 2. Cardiomegaly. Signer Name: Chano Wharton MD Signed: 01/23/2020 5:31 PM Workstation Name: [id number]
--- NOTE | 2020-01-23 17:37 | Cat Scan Report ---
CT angio chest INDICATION / CLINICAL INFORMATION: CHEST PAIN WITH ELEVATED D-DIMER. TECHNIQUE: Axial CT images were obtained through the chest after injection of IV contrast. 3 plane MIP and/or 3D reconstructions were produced. All CT scans at this location are performed using CT dose reduction f or ALARA by means of automated exposure control. COMPARISON: None available. FINDINGS: PULMONARY ARTERIES: No pulmonary emboli. HEART: Heart is enlarged. There is reflux of contrast into the coronary sinus, inferior vena cava and hepatic veins. MEDIASTINUM / DARIUSZ: No significant abnormality. LUNGS: Lungs are clear No pleural effusion. No pneumothorax. ADDITIONAL FINDINGS: None. UPPER ABDOMEN: Large volume of ascites is seen within the upper abdomen. SKELETAL STRUCTURES: No significant osseous abnormality. IMPRESSION: 1. No CT evidence for pulmonary embolism. 2. Cardiomegaly with evidence of elevated right atrial filling pressures. Large volume of ascites. Co rrelate for right heart failure. Signer Name: Ramirez Haque MD Signed: 01/23/2020 5:32 PM Workstation Name: [id number]
[2020-01-23] MEDS ORDERED: FUROSEMIDE 40 MG/4 ML INJ IV ONE (18:44)
[2020-01-23 18:55] VITALS: BP 100/73
== END 2020-01-23 19:00 | disposition home or self-care (01) ==
LOC: ED 13:14
DX: I11.0 Hypertensive heart disease with heart failure (principal); I50.9 Heart failure, unspecified; I25.2 Old myocardial infarction; Z87.891 Personal history of nicotine dependence; Z79.899 Other long term (current) drug therapy
CPT/HCPCS: 36415; 71045; 71275; 74177; 80048; 80076; 83690; 83880; 84484; 85025; 85379; 85610; 85730; 93005; 96361; 96374; 96375; 99285; J1940; J2270; J2405; J7040; Q9967

== ENCOUNTER 2021-07-14 15:44 | Outpatient (CLI) | payer MEDICAID ==
[2021-07-14 16:22] LABS: Hematocrit 32.6 % (35.5-45.6); Hemoglobin 10.9 gm/dl (11.8-15.2); Mean Corpuscular HGB Conc 34 % (32-34); Mean Corpuscular Volume 80 fl (84-94); Platelet Count 333 K/mm3 (140-440); Red Blood Count 4.06 M/mm3 (3.65-5.03); Red Cell Distribution Width 17.6 % (13.2-15.2)
[2021-07-14 16:49] LABS: INR 1.14 (0.87-1.13)
[2021-07-14 16:51] LABS: Alanine Aminotransferase 35 units/L (7-56); Albumin 4.1 g/dL (3.9-5); BUN/Creatinine Ratio 17; Blood Urea Nitrogen 17 mg/dL (9-20); Calcium 9.8 mg/dL (8.4-10.2); Hemolysis Index 3
== END 2021-07-14 15:45 | disposition home or self-care (01) ==
LOC: LAB 15:44
PROVIDERS: ATTEND Internal Medicine
DX: I50.22 Chronic systolic (congestive) heart failure (principal); Z95.811 Presence of heart assist device; Z79.01 Long term (current) use of anticoagulants
CPT/HCPCS: 36415; 80053; 83735; 85027; 85610

== ENCOUNTER 2021-07-30 14:58 | Outpatient (CLI) | payer MEDICAID ==
[2021-07-30 15:34] LABS: Hemoglobin 11.5 gm/dl (11.8-15.2); Mean Corpuscular HGB Conc 32 % (32-34); Mean Corpuscular Volume 79 fl (84-94); Platelet Count 363 K/mm3 (140-440); Red Blood Count 4.54 M/mm3 (3.65-5.03); Red Cell Distribution Width 18.3 % (13.2-15.2)
[2021-07-30 15:45] LABS: INR 1.51 (0.87-1.13)
[2021-07-30 17:18] LABS: Alanine Aminotransferase 27 units/L (7-56); Albumin 4.3 g/dL (3.9-5); BUN/Creatinine Ratio 16; Blood Urea Nitrogen 19 mg/dL (9-20); Calcium 9.8 mg/dL (8.4-10.2); Hemolysis Index 0
== END 2021-07-30 14:59 | disposition home or self-care (01) ==
LOC: LAB 14:58
PROVIDERS: ATTEND Internal Medicine
DX: I50.22 Chronic systolic (congestive) heart failure (principal); Z95.811 Presence of heart assist device; Z79.01 Long term (current) use of anticoagulants
CPT/HCPCS: 36415; 80053; 83735; 85027; 85610

== ENCOUNTER 2021-08-14 11:16 | Outpatient (CLI) | payer MEDICAID ==
[2021-08-14 11:45] LABS: Hematocrit 40.5 % (35.5-45.6); Hemoglobin 12.8 gm/dl (11.8-15.2); Mean Corpuscular HGB Conc 32 % (32-34); Mean Corpuscular Volume 78 fl (84-94); Platelet Count 278 K/mm3 (140-440); Red Blood Count 5.17 M/mm3 (3.65-5.03); Red Cell Distribution Width 19.1 % (13.2-15.2)
[2021-08-14 12:01] LABS: Alanine Aminotransferase 24 units/L (7-56); Albumin 4.1 g/dL (3.9-5); BUN/Creatinine Ratio 9; Blood Urea Nitrogen 8 mg/dL (9-20); Calcium 9.4 mg/dL (8.4-10.2); Hemolysis Index 5
[2021-08-14 12:04] LABS: INR 2.42 (0.87-1.13)
== END 2021-08-14 11:17 | disposition home or self-care (01) ==
LOC: LAB 11:16
PROVIDERS: ATTEND Internal Medicine
DX: I50.22 Chronic systolic (congestive) heart failure (principal); Z79.01 Long term (current) use of anticoagulants; Z95.811 Presence of heart assist device
CPT/HCPCS: 36415; 80053; 83735; 85027; 85610